=== PATIENT | female | born 1995 | race Caucasian/White ===

== ENCOUNTER 2023-07-10 18:45 | Emergency (ER) | payer OTHER, SELFPAY ==
[2023-07-10 18:53] VITALS: BP 119/66; PULSE 79; RESP 18; TEMP 36.8; O2SAT 99; BMI 28.4
[2023-07-10 19:35] LABS: Bilirubin Urine NEGATIVE (NEGATIVE); Blood Urine NEGATIVE (NEGATIVE); Clarity Urine CLEAR (CLEAR); Color Urine LT. YELLOW (YELLOW); Glucose Urine UA NEGATIVE (NEGATIVE); Ketones Urine TRACE mg/dL (NEGATIVE); Leukocyte Esterase Urine MODERATE (NEGATIVE); Nitrite Urine NEGATIVE (NEGATIVE); Protein Urine NEGATIVE (NEG/TRACE); Urine Microscopic Indicated YES
--- NOTE | 2023-07-10 19:43 | ED.FEMALEGU1 ---
HPI - Female Genitourinary General Chief complaint: Urogenital-Female Stated complaint: Vaginal pain Time Seen by Provider: 07/10/23 18:48 Source: patient Mode of arrival: walk-in Limitations: no limitations History of Present Illness HPI Narrative: 28-year-old female presents with a concern that she has a yeast infection or herpes outbreak. She has a known history of herpes. She complains of vaginal itching and white discharge. She complains of irritation to her labia. She states that there may be a risk of STD. She has tried Monistat. Denies fever, abd or back pain, dysuria, n/v/d Related Data Previous Rx's Medication Instructions Recorded metronidazole 500 mg tablet 500 mg PO Q12H 7 days #14 tabs 07/10/23 valacyclovir 500 mg tablet 500 mg PO Q12H 3 days #6 tabs 07/10/23 Allergies Allergy/AdvReac Type Severity Reaction Status Date / Time No Known Drug Allergies Allergy Verified 07/10/23 18:53 Review of Systems ROS Status of ROS 10 or more systems reviewed and unremarkable except as noted in history and below PFSH PFSH Social History Smoking status: Current every day smoker Exam Narrative Exam Narrative: General: A&Ox3, no distress, talking in full an complete sentences skin: warm, dry, intact head: normocephalic, atraumatic eyes: EOMI nose: nares patent neck: supple, trachea midline respiratory: non-labored extremities: FROM x 4, strength +5/5 abd: soft, NT vaginal: flat ulcerations to both labia with green discharge; nurse at bedside as witness neuro: A&Ox3 psych: appropriate mood and affect, cooperative Constitutional Vital Signs, click to edit/add: Last Vital Signs Temp 98.2 F 07/10/23 18:53 Pulse 79 07/10/23 18:53 Resp 18 07/10/23 18:53 BP 119/66 07/10/23 18:53 Pulse Ox 99 07/10/23 18:53 Course Vital Signs Vital signs: Vital Signs Temperature 98.2 F 07/10/23 18:53 Pulse Rate 79 07/10/23 18:53 Respiratory Rate 18 07/10/23 18:53 Blood Pressure 119/66 07/10/23 18:53 Pulse Oximetry 99 07/10/23 18:53 Temperature 98.2 F 07/10/23 18:53 Pulse Rate 79 07/10/23 18:53 Respiratory Rate 18 07/10/23 18:53 Blood Pressure 119/66 07/10/23 18:53 Pulse Oximetry 99 07/10/23 18:53 MDM - Female Genitourinary MDM Narrative Medical decision making narrative: UA negative. Gonorrhea and chlamydia pending. She is given her first dose of valacyclovir here and given a prescription as she does appear to have a general herpes outbreak. Wet prep negative for trichomoniasis and yeast and does show clue cells and will be treated for bacterial vaginosis with a dose of Flagyl here and given a prescription. I did discuss the black box warning on Flagyl with the patient and the risk of cancer and offered MetroGel applicators, but she chooses to be medicated with pills. She is to abstain from any sexual intercourse until her STD results are finalized and if she is positive she needs to inform all sexual partners so they can be tested and treated. She was educated to inform all sexual partners that she has herpes. Follow-up with the [facility]. afebrile, not tachypneic, not tachycardic, not hypoxic, non toxic appearing and ambulating at baseline and hemodynamically stable to be d/c. answered all questions. educated on SE of meds. pt in agreement with tx. educated when to return to ER. Lab Data Attestation: I reviewed the patient's lab results. Labs: Lab Results 07/10/23 Range/Units 19:15 Urine Color Lt. yellow (YELLOW) Urine Clarity Clear (CLEAR) Urine pH 7.0 (5.0-9.0) Ur Specific [place] 1.020 (1.005-1.025) Urine Protein Negative (NEG/TRACE) mg/dL Urine Glucose (UA) Negative (NEGATIVE) mg/dL Urine Ketones Trace A (NEGATIVE) mg/dL Urine Occult Blood Negative (NEGATIVE) Urine Nitrite Negative (NEGATIVE) Urine Bilirubin Negative (NEGATIVE) Urine Urobilinogen 1.0 (0.2-1.0) EU/dL Ur Leukocyte Esterase Moderate A (NEGATIVE) Urine RBC 2-5 A (0-2) #/HPF Urine WBC 5-10 A (NONE SEEN) #/HPF Ur Squamous Epith Cells Few A (NONE/RARE) #/LPF Urine Crystals None seen (None Seen) #/HPF Urine Bacteria Trace A (NONE SEEN) #/HPF Urine Casts None seen (NONE SEEN) #/LPF Urine Mucus Trace A (NONE SEEN) Ur Culture Indicated? Yes Urine HCG, Qual Negative (NEGATIVE) Discharge Plan Discharge Chief Complaint: Urogenital-Female Clinical Impression: Bacterial vaginosis Genital herpes Qualifiers: Herpes simplex infection site: vulvovaginitis Qualified Code(s): A60.04 - Herpesviral vulvovaginitis Patient Disposition: Home, Self-Care Time of Disposition Decision: 20:16 Condition: Good Mode of Transportation: Private Vehicle Prescriptions / Home Meds: New valacyclovir 500 mg tablet 500 mg PO Q12H 3 Days Qty: 6 0RF metronidazole 500 mg tablet 500 mg PO Q12H 7 Days Qty: 14 0RF Instructions: Bacterial Vaginosis (ED), Genital Herpes Simplex (ED), Sexually Transmitted Diseases (ED) Additional Instructions: No sexual activity until you find out your STD results If you do test positive, you need to inform all sexual partners that can be tested and treated You need to inform all partners prior to sexual intercourse as you have herpes and can spread this even without symptoms Stand Alone Forms: Portal Instructions Referrals: ABBY NAPIER [Primary Care Provider] - 1 week Discharge Date/Time: 07/10/23 20:38
[2023-07-10 19:52] LABS: Bacteria Urine TRACE #/HPF (NONE SEEN)
[2023-07-10 19:53] LABS: Cast Seen? NONE SEEN #/LPF (NONE SEEN); Crystals Seen? None Seen #/HPF (None Seen); Mucus Urine TRACE (NONE SEEN); Squamous Epithelial Cell Urine FEW #/LPF (NONE/RARE); Urine Culture Indicated YES
--- NOTE | 2023-07-10 20:01 | PC.NURSE ---
Patient c/o vaginal itching, pain, edema since yesterday. patient has known herpes viral infection and believes shes having an outbreak. unknown if she has any known blisters at this time but states it feels similar to previous outbreaks. patient also c/o thick, yeast like discharge. she took OTC monostat treatment yesterday with no relief. patient denies chance of but states there is a chance for other possible STD infections due to sexual activity. RN and internet application developer set patient up for vaginal exam. RICKI acuna at bedside. GC/Chlyamidia, wet prep taken to lab. Urine obtained and sent to lab. patient denies needs at this time. aware she is awaiting for results.
[2023-07-10 20:09] LABS: HCG Qualitative Urine* NEGATIVE (NEGATIVE)
[2023-07-10] MEDS: METRONIDAZOLE 250 MG TABLET 500 MG PO (20:38)
[2023-07-10] MEDS: VALACYCLOVIR HCL 500 MG TABLET PO (20:38)
[2023-07-12 22:07] LABS: Neisseria gonorrhoeae, NAA Negative (Negative)
== END 2023-07-10 20:38 | disposition home or self-care (01) ==
PROVIDERS: Physician Assistant; Student in an Organized Health Care Education/Training Program; Emergency Provider Internal Medicine; PCP Internal Medicine
DX: N76.0 Acute vaginitis (principal); F17.210 Nicotine dependence, cigarettes, uncomplicated
CPT/HCPCS: 81001; 84703; 87086; 87210; 87491; 87591; 99283

== ENCOUNTER 2023-10-31 09:57 | Outpatient (OUT) | payer OTHER, SELFPAY ==
--- NOTE | 2023-10-31 10:26 | XR_ITS ---
[address] [address] Patient Name: BRANNON SYKES MRN: [id number] date: 1995 Sex: F Assigned Patient Location: [facility] Current Patient Location: [facility] Accession/Order Number: [id number] Exam Date: 10/31/2023 10:38 Report Date: 10/31/2023 11:03 At the request of: JUANA ODOM Procedure: XR chest 2V EXAM: XR chest 2V HISTORY: Preop exam COMPARISON: None. TECHNIQUE: PA and lateral views of the chest. FINDINGS: The cardiomediastinal silhouette is normal. No focal consolidation is identified. There is no pneumothorax. No pleural effusion is noted. The osseous structures are intact. XR/XR chest 2V IMPRESSION: No acute cardiopulmonary process. Electronically authenticated by: MORIAH STEIN Date: 10/31/2023 11:03
== END 2023-10-31 09:58 | disposition home or self-care (01) ==
LOC: PST 09:59
PROVIDERS: PCP Internal Medicine; Visit Provider Obstetrics & Gynecology
DX: Z01.810 Encounter for preprocedural cardiovascular examination (principal); Z30.2 Encounter for sterilization
CPT/HCPCS: 71046

== ENCOUNTER 2023-11-09 06:14 | Day surgery (SDC) | payer OTHER, SELFPAY ==
[2023-10-31 10:33] VITALS: BP 102/68; PULSE 70; RESP 16; TEMP 36.3; O2SAT 98; BMI 18.7
[2023-11-09] VITALS (9 sets, daily range): BP systolic 104–132; BP diastolic 70–94; PULSE 64–112; RESP 10–19; TEMP 36.2–37; O2SAT 95–100; BMI 18.7
--- OUTSIDE RECORDS SUMMARY | 2023-11-09 06:17 | XMS_ITS | CCD ---
Author Name Unknown Address [address] [facility] [address] [place] [id number] Organization [facility] Care Team Providers Care Bag Sewer Name Role Phone PHYSICIAN, DEFAULT Unavailable Unavailable PHYSICIAN, DEFAULT Unavailable Unavailable MYNOR MEANS Unavailable Unavailable Unavailable Primary Care Provider Unavailabl e Unavailable Primary Care Provider UnavailDimitrios Finley Primary Care Provider DIMITRIOS OSWALD Referring Unavailable MARGRETDIMITRIOS Referring Unavailable MARGRET, DIMITRIOS J Referring Unavailable MARGRET, DIMITRIOS J Referring Unavailable MARGRET, DIMITRIOS J Referring Unavailable MARGRET, DIMITRIOS J Referring Unavailable MARGRET, DIMITRIOS J Admitting Unavailable MARGRET DIMITRIOS J Attending Unavailable MARGRET DIMITRIOS J Primary Care Unavailable ALEXIS ARNOLD Consulting Unavailable ALEXIS ARNOLD Attending Unavailable ALEXIS ARNOLD Admitting Unavailable JUANA ODOM Attending Unavailable Allergies Allergy Classification Reported Allergen(s) Allergy Type Date of Onset Reaction(s) Facility (1 source) Seasonal allergy; Translations: [Seasonal] Propensity to adverse reactions (disorder) 3 [facility] Medications Current Medications Medication Drug Class(es) Dates Sig (Normalized) Sig (Original) acetaminophen 500 mg oral tablet (2 sources) Start: 10-08-2020 1,000 mg, Oral, EVERY 6 HOURS PRN, Pain Mild (1-3), Pain Moderate (4-6), Fever, Fever >100.5 F (38 C), Starting 10/08/20 at 2248 Maximum dose of acetaminophen is 4000 mg from all sources in 24 hours. Inform physician if temp >100.4 (38.0) May alternate with Motrin for pain management Start: 09-03-2019 take 650 mg by mouth every four hours as needed for pain, then take 4000 mg by mouth every twenty-four hours as needed for pain 650 mg, Oral, EVERY 4 HOURS PRN, Pain Mild (1-3), Fever, Fever >100.5 F (38 C), Starting Sun09/03/19 at 0819 Maximum dose of acetaminophen is 4000 mg from all sources in 24 hours. benzocaine 200 mg/ml / menthol 5 mg/ml topical spray (2 sources) Standardized Chemical Allergen Start: 10-08-2020 Topical, PRN, Pain, Starting Sun10/08/20 at 2248 Apply to perineal area. Patient is capable and may self administer at bedside. Start: 09-02-2019 Topical, PRN, Pain, Starting Sun09/02/19 at 0902 Apply to perineal area. Patient is capable and may self administer at bedside. bisacodyl 10 mg rectal suppository (1 source) Stimulant Laxative Start: 10-08-2020 take 10 mg rectal route once daily as needed for constipation 10 mg, Rectal, DAILY PRN, Constipation, Starting Sun10/08/20 at 2248, calcium chloride 0.0014 meq/ml / potassium chloride 0.004 meq/ml / sodium chloride 0.103 meq/ml / sodium lactate 0.028 meq/ml injectable solution (3 sources) Start: 10-08-2020 End: 10-08-2020 Intravenous, at 125 mL/hr, CONTINUOUS, Starting Sun10/08/20 at 2315, Start: 09-01-2019 End: 09-03-2019 Intravenous, at 125 mL/hr, C ONTINUOUS, Starting Sun09/01/19 at 2015, Labor and Delivery docusate sodium 100 mg oral capsule (6 sources) Start: 10-08-2020 take 1 capsule by mo uth twice daily as needed for constipation docusate sodium (COLACE) 100 MG capsule Take 1 capsule by mouth 2 times daily as needed for Constipation 60 capsule 0 10/09/2020 Active Start: 09-01-2019 End: 10-02-2019 take 100 mg by mouth twice daily 100 mg, Oral, 2 TIMES DAILY, First dose on Sun09/03/19 at 0900 Do not crush or break. ferrous sulfate 325 mg delayed release oral tablet (2 sources) Start: 10-09-2020 take 1 tablet by mouth twice daily ferrous sulfate (FE TABS) 325 (65 Fe) MG EC tablet Take 1 tablet by mouth 2 times daily 90 tablet 1 10/09/2020 Active Start: 10-09-2020 End: 10-09-2020 take 1 tablet by mouth once daily at breakfast ferrous sulfate (IRON 325) 325 (65 Fe) MG tablet Take 1 tablet by mouth daily (with breakfast) 90 tablet 1 10/09/2020 10/09/2020 Discontinued (Stop Taking at Discharge) hydrocortisone 25 mg/ml topical cream (2 sources) Corticosteroid Start: 10-08-2020 Topical, EVERY 2 HOURS PRN, For perineal pain or discomfort, Starting 10/08/20 at 2248 Apply to perineal area. Patient is capable and may self administer at bedside. Start: 09-03-2019 Topical, EVERY 2 HOURS PRN, For perineal pain or discomfort, Starting 09/03/19 at 0819 Apply to perineal area. Patient is capable and may self administer at bedside. ibuprofen 800 mg oral tablet (13 sources) Nonsteroidal Anti-inflammatory Drug Start: 10-09-2020 take 1 tablet by mouth twice daily as needed for pain ibuprofen (ADVIL;MOTRIN) 800 MG tablet Take 1 tablet by mouth 2 times daily as needed for Pain 60 tablet 0 10/09/2020 Active Start: 09-02-2019 End: 10-09-2020 take 1 tablet by mouth every eight hours as needed for pain ibuprofen (ADVIL;MOTRIN) 800 MG tablet Take 1 tablet by mouth every 8 hours as needed for Pain 30 tablet 0 09/02/2019 Suspended lanolin 0.5 mg/mg topical ointment (2 sources) Start: 10-08-2020 Topical, PRN, Dry Skin, nipple discomfort, Starting 10/08/20 at 2248, Start: 09-03-2019 Topical, PRN, Dry Skin, nipple discomfort, Starting 09/03/19 at 0819, magnesium hydroxide 80 mg/ml oral suspension (1 source) Start: 10-08-2020 take 30 mL by mouth once daily as needed for constipation 30 mL, Oral, DAILY PRN, Constipation, Starting 10/08/20 at 2248, 2 ml ondansetron 2 mg/ml injection (2 sources) Serotonin-3 Receptor Antagonist Start: 10-08-2020 4 mg, Intravenous, EVERY 4 HOURS PRN, Nausea, Starting Sun10/08/20 at 2248, Start: 09-03-2019 take 8 mg by mouth e very eight hours as needed for nausea 8 mg, Oral, EVERY 8 HOURS PRN, Nausea, Starting Sun09/03/19 at 0819, oxytocin (PITOCIN) 30 units in 500 mL infusion (4 sources) Start: 10-08-2020 95 ching-units /min (95 mL/hr), Intravenous, at 95 mL/hr, PRN, Bleeding, Starting Sun10/08/20 at 2248, For 1 dose For Post Use Only. Give after delivery of placenta. Following Bolus from bag administration, reduce the rate to 95 mL/hr and administer remaining 20 units over 3.5 hours (210 minutes). Start: 10-08-2020 End: 10-08-2020 oxytocin (PITOCIN) 30 units in 500 mL infusion Start: 09-03-2019 1 ching-units/ min (1 mL/hr), Intravenous, at 1 mL/hr, CONTINUOUS, Starting Sun09/03/19 at 0845 For Post Use Only Give 166ml (10 units) bolus, followed by 50ml/hr (3 units/hr). May stop if bleeding returns to normal. Start: 09-01-2019 End: 09-03-2019 1 ching-units/min (1 mL/hr), Intravenous, at 1 mL/hr, CONTINUOUS, Starting Sun09/01/19 at 2015 Begin infusion at 1 ching-unit/min (1 ching-unit per min = 1 mL per hour) and increase by 1 ching-unit/min after 30 minutes. Then increase by 2 ching-units/min as needed, no faster than every 30 minutes, until labor is achieved. Labor is defined as contractions every 2-3 minutes with cervical changes or [place] units (MVU) greater than 200 in a 10-minute window. Maximum infusion rate: 20 ching-unit/min. Contact provider if maximum rate does not achieve desired response. Provider may order alternative titration goal or other clinically appropriate goal of titration rate (s). Smaller titration increments of 1 ching-units/min, not faster than every 30 minutes, may be used when approaching therapeutic goal. Labor and Delivery MV-Min-Fe Fum-FA-DH A ( 1 PO) (12 sources) MV-Min- Fe Fum-FA-DHA ( 1 PO) Take by mouth 0 Suspended MV-Min- Fe Fum-FA-DHA ( 1 PO) Take by mouth 0 Active simethicone 80 mg chewable tablet (1 source) Start: 10-08-2020 take 80 mg by mouth every six hours as needed 80 mg, Oral, EVERY 6 HOURS PRN, Cramping, Flatulence, Starting Sun10/08/20 at 2248, 3 ml sodium chloride 9 mg/ml injection (4 sources) Start: 10-08-2020 10 mL, Intrave nous, EVERY 12 HOURS SCHEDULED (2 times per day), First dose on Sun10/08/20 at 2315, Start: 10-08-2020 take 10 mL intravenous route o nce 10 mL, Intravenous, PRN, Line Care, Starting Sun10/08/20 at 2248 After every IV line use Start: 09-03-2019 10 mL, Intrave nous, EVERY 12 HOURS SCHEDULED (2 times per day), First dose on Sun09/03/19 at 0900, Start: 09-03-2019 take 10 mL intravenous route o nce 10 mL, Intravenous, PRN, Line Care, Starting Sun09/03/19 at 0819 After every IV line use witch benson 500 mg/ml medicated pad (2 sources) Start: 10-08-2020 Topical, PRN, Hemorrhoids, For perineal pain or discomfort, Starting Sun10/08/20 at 2248 Apply to perineal area. Patient is capable and may self administer at bedside. Start: 09-03-2019 Topical, PRN, Hemorrhoids, For perineal pain or discomfort, Starting Sun09/03/19 at 0819 Apply to perineal area. Patient is capable and may self administer at bedside. Completed/Discontinued Medications Medication Drug Class(es) Dates Sig (Normalized) Sig (Original) metroNIDAZOLE 500 mg oral tablet (2 sources) Nitroimidazole Antimicrobial Start: 09-30-2020 End: 10-09-2020 take 1 tablet by mouth twice daily metroNIDAZOLE (FLAGYL) 500 MG tablet Take 1 tablet by mouth 2 times daily for 7 days 14 tablet 0 10/04/2020 10/09/2020 Discontinued (Stop Taking at Discharge) miSOPROStol (CYTOTEC) pre-split tablet TABS 25 mcg (1 source) Start: 10-08-2020 End: 10-08-2020 miSOPROStol (CYTOTEC) pre-split tablet TABS 25 mcg 20 ml morphine sulfate 10 mg/ml injection (1 source) Opioid Agonist Start: 10-08-2020 End: 10-08-2020 morphine (PF) injection 10 mg oxytocin (PITOCIN) 30 units in 500 mL infusion Override Pull (1 source) Start: 10-08-2020 End: 10-08-2020 oxytocin (PITOCIN) 30 units in 500 mL infusion Override Pull 1 ml promethazine hydrochloride 25 mg/ml injection (1 source) Phenothiazine Start: 10-08-2020 End: 10-08-2020 promethazine (PHENERGAN) injection 25 mg 200 ml ropivacaine hydrochloride 2 mg/ml injection (1 source) Amide Local Anesthetic Start: 09-02-2019 End: 09-03-2019 ropivacaine 0.2% in sodium chloride 0.9% (OB) epidural 100 mL Problems Active Problems Problem Classification Problem Date Documented Da te Episodic/Chronic Menstrual disorders (3 sources) Missed period; Translations: [Missed menses] Chronic Other complications of (1 source) Urinary tract infection in ; Translations: [Urinary tract infection in mother during third trimester of ] Episodic Other complications of (13 sources) Late entry into care; Translations: [Late care] Onset: 04-30-2019 05-30-2019 Episodic Other complications of (20 sources) High risk ; Translations: [High risk multigravida in third trimester] Onset: 04-30-2019 Resolved: 07-06-2020 08-25-2019 Episodic Other inflammatory condition of skin (1 source) Pruritus of vagina; Translations: [Vaginal itching] Episodic Other and delivery including normal (16 sources) Normal ; Translations: [Vaginal delivery] Onset: 04-30-2019 05-30-2019 Episodic Residual codes; unclassified (1 source) Requires diphtheria, tetanus and pertussis vaccination; Translations: [Need for diphtheria-tetanus- pertussis (Tdap) vaccine] Onset: 08-25-2019 08-25-2019 Episodic Residual codes; unclassified (1 source) Gestation period, 25 weeks; Translations: [25 weeks gestation of ] Episodic Residual codes; unclassified (1 source) Gestation period, 35 weeks; Translations: [35 weeks gestation of ] Episodic Residual codes; unclassified (1 source) Gestation period, 34 weeks; Translations: [34 weeks gestation of ] Substance-related disorders (3 sources) Smoker; Translations: [Smoking] Onset: 10-06-2020 10-08-2020 Chronic Substance-related disorders (7 sources) Marijuana user; Translations: [Marijuana user] Onset: 04-30-2019 07-08-2019 Unclassified (9 sources) Tetanus diphtheria and acellular pertussis vaccination declined; Translations: [Tetanus, diphtheria, and acellular pertussis (Tdap) vaccination declined] Onset: 08-25-2019 Resolved: 05-17-2020 08-26-2019 Unclassified (6 sources) History of clinical finding in subject; Translations: [History of marijuana use] Onset: 04-30-2019 07-06-2020 Past or Other Problems Problem Classification Problem Date Documented Da te Episodic/Chronic Diabetes or abnormal glucose tolerance complicating ; childbirth; or the puerperium (12 sources) Personal history of gestational diabetes; Translations: [History of gestational diabetes] Onset: 05-29-2019 Resolved: 05-17-2020 05-29-2019 Episodic Genitourinary symptoms and ill-defined conditions (12 sources) Bacteriuria; Translations: [GBS bacteriuria] Onset: 05-02-2019 Resolved: 05-17-2020 05-29-2019 Episodic Other female genital disorders (1 source) Vaginal discharge; Translations: [Vaginal discharge] Episodic Residual codes; unclassified (10 sources) Needs influenza immunization; Translations: [Flu vaccine need] Onset: 08-25-2019 08-25-2019 Episodic Results Test Name Value Interpretation Reference Range Facil ity CBC auto differentialon - Basophils (Bld) [#/Vol] 10*3/uL [facility] [place] Basophils/100 WBC (Bld) 0 % 0 - 2 % [place], [place] Differential Type NOT REPORTED [place] Eosinophils (Bld) [#/Vol] 0.04 10*3/uL [place] Eosinophils/100 WBC (Bld) 1 % 1 - 4 % [place] Erythrocyte distribution width (RBC) [Ratio] 13.2 % 11.8 - 14.4 % [place] Hematocrit (Bld) [Volume fraction] 31.4 % Low 36.3 - 47.1 % [place] Hemoglobin (Bld) [Mass/Vol] 9.8 g/dL Low 11.9 - 15.1 g/dL [place] Immature granulocytes (Bld) [#/Vol] 0.05 10*3/uL [place] Immature granulocytes (Bld) [#/Vol] 1 % High 0 [place] Interpretation and review of laboratory results Abnormal [place] Lymphocytes (Bld) [#/Vol] 2.29 10*3/uL [place] Lymphocytes/100 WBC (Bld) 28 % 24 - 43 % [place] MCH (RBC) [Entitic mass] 25.7 pg 25.2 - 33.5 pg [place] MCHC (RBC) [Mass/Vol] 31.2 g/dL 28.4 - 34.8 g/dL [place] MCV (RBC) [Entitic vol] 82.2 fL Low 82.6 - 102.9 fL [place] Monocytes (Bld) [#/Vol] 0.38 10*3/uL [place] Monocytes/100 WBC (Bld) 5 % 3 - 12 % [place] Platelet mean volume (Bld) [Entitic vol] 10.7 fL 8.1 - 13.5 fL [place] Platelets (Bld) [#/Vol] 250 10*3/uL [place] Platelets (Bld) [#/Vol] NOT REPORTED [place] RBC (Bld) [#/Vol] 3.82 10*6/uL Low 3.95 - 5.1 1 m/uL [place] RBC morphology finding Nom (Bld) MICROCYTOSIS PRESENT [place] Segmented neutrophils/100 WBC (Bld) 65 % 36 - 65 % [place] Segs Absolute 5.33 [place] WBC (Bld) [#/Vol] 8.1 10*3/uL [place] WBC (Bld) [#/Vol] 0.0 10*3/uL 0.0 per 100 WBC M [place] WBC Morphology NOT REPORTED [place] CBC with Diffon 10-08-2020 Abs. Basophil <0.03 Normal 0.00-0.20 [facility] Comment on above: Performed By: #### U LELO Winter[place] #### [place] [address] [employer]: Gavin Hill MD Abs.Imm.Granulocyte 0.05 k/uL Normal 0.00-0.30 [facility] Comment on above: Performed By: #### U Moy TORO #### [place] [address] [employer]: Gavin Hill MD Abs.Neutrophil (Seg) 5.33 k/uL Normal 1.50-8.10 [facility] Comment on above: Performed By: #### U Moy TORO #### [address] [address] [employer]: Gavin Hill MD Basophils/100 WBC (Bld) 0 % Normal 0-2 [facility] Comment on above: Performed By: #### U A [place]ORO #### [place] [address] [employer]: Gavin Hill MD Eosinophils (Bld) [#/Vol] 0.04 10*3/uL Normal 0.00-0.44 [facility] Comment on above: Performed By: #### U Moy TORO #### [address] [address] [employer]: Gavin Hill MD Eosinophils/100 WBC (Bld) 1 % Normal 1-4 [facility] Comment on above: Performed By: #### U A, TORO #### [address] [address] [employer]: Gavin Hill MD Erythrocyte distribution width (RBC) [Ratio] 13.2 % Normal 11.8-14.4 [facility] Comment on above: Performed By: #### U A, TORO #### [address] [address] [employer]: Gavin Hill MD Hematocrit (Bld) [Volume fraction] 31.4 % Low 36.3-47.1 [facility] Comment on above: Performed By: #### U A, TORO #### [address] [address] [employer]: Gavin Hill MD Hemoglobin (Bld) [Mass/Vol] 9.8 g/dL Low 11.9-15.1 [facility] Comment on above: Performed By: #### U A, TORO #### [address] [address] [employer]: Gavin Hill MD Immature granulocytes (Bld) [#/Vol] 1 % High 0 [facility] Comment on above: Performed By: #### U A, TORO #### [address] [address] [employer]: Gavin Hill MD Lymphocytes (Bld) [#/Vol] 2.29 10*3/uL Normal 1.10-3.70 [facility] Comment on above: Performed By: #### U A, TORO #### [address] [address] [employer]: Gavin Hill MD Lymphocytes/100 WBC (Bld) 28 % Normal 24-43 [facility] Comment on above: Performed By: #### U A, TORO #### [address] [address] [employer]: Gavin Hill MD MCH (RBC) [Entitic mass] 25.7 pg Normal 25.2-33.5 [facility] Comment on above: Performed By: #### U A, TORO #### [address] [address] [employer]: Gavin Hill MD MCHC (RBC) [Mass/Vol] 31.2 g/dL Normal 28.4-34.8 [facility] Comment on above: Performed By: #### U A, TORO #### [address] [address] [employer]: Gavin Hill MD MCV (RBC) [Entitic vol] 82.2 fL Low 82.6-102.9 [facility] Comment on above: Performed By: #### U A, TORO #### [address] [address] [employer]: Gavin Hill MD Monocytes (Bld) [#/Vol] 0.38 10*3/uL Normal 0.10-1.20 [facility] Comment on above: Performed By: #### U A, TORO #### [address] [address] [employer]: Gavin Hill MD Monocytes/100 WBC (Bld) 5 % Normal 3-12 [facility] Comment on above: Performed By: #### U A, TORO #### [address] [address] [employer]: Gavin Hill MD Neutrophil (Seg) 65 % Normal 36-65 [facility] Comment on above: Performed By: #### U A, TORO #### [address] [address] [employer]: Gavin Hill MD NRBC Automated 0.0 per 100 WBC Normal 0.0 [facility] Comment on above: Performed By: #### U A, TORO #### [address] [address] [employer]: Gavin Hill MD Platelet mean volume (Bld) [Entitic vol] 10.7 fL Normal 8.1-13.5 [facility] Comment on above: Performed By: #### U A, TORO #### [address] [address] [employer]: Gavin Hill MD Platelets (Bld) [#/Vol] 250 10*3/uL Normal 138-453 [facility] Comment on above: Performed By: #### U A, TORO #### [address] [address] [employer]: Gavin Hill MD RBC (Bld) [#/Vol] 3.82 10*6/uL Low 3.95-5.11 [facility] Comment on above: Performed By: #### U A, TORO #### [address] [address] [employer]: Gavin Hill MD RBC morphology finding Nom (Bld) MICROCYTOSIS PRESENT Normal [facility] Comment on above: Performed By: #### U A, TORO #### [address] [address] [employer]: Gavin Hill MD WBC (Bld) [#/Vol] 8.1 10*3/uL Normal 3.5-11.3 [facility] Comment on above: Performed By: #### U A, TORO #### [facility] [place] [address] [employer]: Gavin Hill MD Auto Diff Performed NOT REPORTED Normal [facility] Comment on above: Performed By: #### U A, TORO #### [facility] [address] [place] [address] [employer]: Gavin Hill MD Platelets (Bld) [#/Vol] NOT REPORTED Normal [facility] Comment on above: Performed By: #### U A, TORO #### [facility] [address] [place] [address] [employer]: Gavin Hill MD WBC Morphology NOT REPORTED Normal [facility] Comment on above: Performed By: #### U A, TORO #### [facility] [address] [place] [address] [employer]: Gavin Hill MD COVID-19on 10-08-2020 SARS-CoV-2, Rapid Not Detected Not Detected [place], [place] Comment on above: Rapid NAAT: The specimen is NEGATIVE for SARS-CoV-2, the novel coronavirus associated with COVID-19. The ID NOW COVID-19 assay is designed to detect the virus that causes COVID-19 in patients with signs and symptoms of infection who are suspected of COVID-19. An individual without symptoms of COVID-19 and who is not shedding SARS-CoV-2 virus would expect to have a negative (not detected) result in this assay. Negative results should be treated as presumptive and, if inconsistent with clinical signs and symptoms or necessary for patient management, should be tested with an alternative molecular assay. Negative results do not preclude SARS-CoV-2 infection and should not be used as the sole basis for patient management decisions. Fact sheet for Healthcare Providers: https://www.fda.gov/media/810707/download Fact sheet for Patients: https://www.fda.gov/media/614140/download Methodology: Isothermal Nucleic Acid Amplification Source .NASOPHARYNGEAL SWAB [place], [place] DRUG SCREEN MULTI URINEon Amphetamine Screen, Ur Negative NEGATIVE [place] Comment on above: (Positive cutoff 1000 ng/mL) Barbiturate Screen, Ur Negative NEGATIVE [place] Comment on above: (Positive cutoff 200 ng/mL) Benzodiazepine Screen, Urine Negative NEGATIVE [place] Comment on above: (Positive cutoff 200 ng/mL) Buprenorphine Urine NOT REPORTED NEGATIVE [place] Cannabinoid Scrn, Ur Negative NEGATIVE [place], [place] Comment on above: (Positive cutoff 50 ng/mL) Cocaine Metabolite, Urine Negative NEGATIVE [place] Comment on above: (Positive cutoff 300 ng/mL) MDMA, Urine NOT REPORTED NEGATIVE [place] Methadone Screen, Urine Negative NEGATIVE [place] Comment on above: (Positive cutoff 300 ng/mL) Methamphetamine, Urine NOT REPORTED NEGATIVE [place] Opiates, Urine Negative NEGATIVE [place] Comment on above: (Positive cutoff 300 ng/mL) Oxycodone Screen, Ur Negative NEGATIVE [place] Comment on above: (Positive cutoff 100 ng/mL) Phencyclidine, Urine Negative NEGATIVE [place] Comment on above: (Positive cutoff 25 ng/mL) Propoxyphene, Urine NOT REPORTED NEGATIVE [place] Test Information Assay provides medic al screening only. The absence of expected drug(s) and/or metabolite(s) may indicate diluted or adulterated urine, limitations of testing or timing of collection. [place] Comment on above: Testing for legal pu rposes should be confirmed by another method. To request confirmation of test result, please call the lab within 7 days of sample submission. Tricyclic Antidepressants, Urine NOT REPORTED NEGATIVE [place] Drug Scr, Abuse, Uron 2019 Amphetamine(s),Ur Negative Normal NEG [facility] Comment on above: Result Comment: (Positive cutoff 1000 ng/mL) Performed By: #### U A, TORO #### [facility] [employer] [address] [place] [id number] [employer]: Gavin Hill MD Barbiturate(s),Ur Negative Normal NEG [facility] Comment on above: Result Comment: (Positive cutoff 200 ng/mL) Performed By: #### U A, TORO #### [facility] [employer] [address] [place] [address] [employer]: Gavin Hill MD Base excess Calc (Bld) [Moles/Vol] Negative Normal NEG [facility] Comment on above: Result Comment: (Positive cutoff 300 ng/mL) Performed By: #### U A, TORO #### [facility] [address] [place] [address] [employer]: Gavin Hill MD Benzodiazepine(s) Negative Normal NEG [facility] Comment on above: Result Comment: (Positive cutoff 200 ng/mL) Performed By: #### U A, TORO #### [place] [address] [employer]: Gavin Hill MD Cannabinoid(s),Ur Negative Normal NEG [facility] Comment on above: Result Comment: (Positive cutoff 50 ng/mL) Performed By: #### U A, TORO #### [address] [address] [employer]: Gavin Hill MD Interpretive Info Assay provides medic al screening only. The absence of expected drug(s) and/or Normal [facility] Comment on above: Result Comment: meta bolite(s) may indicate diluted or adulterated urine, limitations of testing or timing of collection. Testing for legal purposes should be confirmed by another method. To request confirmation of test result, please call the lab within 7 days of sample submission. Performed By: #### U A, TORO #### [facility] [address] [place], [place] [id number] [employer]: Gavin Hill MD Methadone Ql (U) Negative Normal NEG [facility] Comment on above: Result Comment: (Positive cutoff 300 ng/mL) Performed By: #### U A, TORO #### [employer] [address] [place], [place] [id number] Head Of Sales Promotion: Gavin Hill MD Opiate(s), Ur Negative Normal NEG [facility] Comment on above: Result Comment: (Positive cutoff 300 ng/mL) Performed By: #### U A, TORO #### [facility] [employer] [address] [place] [phone] Head Of Sales Promotion: Gavin Hill MD Oxycodone, Urine Negative Normal NEG [facility] Comment on above: Result Comment: (Positive cutoff 100 ng/mL) Performed By: #### U A, TORO #### [facility] [employer] [address] [place] [phone] Head Of Sales Promotion: Gavin Hill MD Phencyclidine, Ur Negative Normal NEG [facility] Comment on above: Result Comment: (Positive cutoff 25 ng/mL) Performed By: #### U A, TORO #### [facility] [address] [place] [phone] Head Of Sales Promotion: Gavin Hill MD Buprenorphrine, Ur NOT REPORTED Normal NEG [facility] Comment on above: Performed By: #### U A, TORO #### [facility] [address] [place] [phone] Head Of Sales Promotion: Gavin Hill MD MDMA, Urine NOT REPORTED Normal NEG [facility] Comment on above: Performed By: #### U A, TORO #### [facility] [address] [place] [phone] Head Of Sales Promotion: Gavin Hill MD Methamphetamine, Ur NOT REPORTED Normal NEG [facility] Comment on above: Performed By: #### U A, TORO #### [facility] [employer] [address] [place] [address] 33976 Head Of Sales Promotion: Gavin Hill MD Propoxyphene,Urine NOT REPORTED Normal NEG [facility] Comment on above: Performed By: #### U A, TORO #### [facility] [address] [place] [phone] Head Of Sales Promotion: Gavin Hill MD Tricyclic antidepressants Screen Ql (U) NOT REPORTED Normal NEG [facility] Comment on above: Performed By: #### U A, TORO #### [facility] [address] [place] [address] [phone] Head Of Sales Promotion: Gavin Hill MD Otheron 10-08-2020 SARS-CoV-2 [facility] [id number] 10-08-2020 SARS-CoV-2 Normal [facility] Comment on above: Performed By: #### U A, TORO #### [address] [phone] Head Of Sales Promotion: Gavin Hill MD SARS-CoV-2,Rapid Not Detected Normal NOTDET [facility] Comment on above: Result Comment: Rapid NAAT: The specimen is NEGATIVE for SARS-CoV-2, the novel coronavirus associated with COVID-19. The ID NOW COVID-19 assay is designed to detect the virus that causes COVID-19 in patients with signs and symptoms of infection who are suspected of COVID-19. An individual without symptoms of COVID-19 and who is not shedding SARS-CoV-2 virus would expect to have a negative (not detected) result in this assay. Negative results should be treated as presumptive and, if inconsistent with clinical signs and symptoms or necessary for patient management, should be tested with an alternative molecular assay. Negative results do not preclude SARS-CoV-2 infection and should not be used as the sole basis for patient management decisions. Fact sheet for Healthcare Providers: https://www.fda.gov/media/028499/download Fact sheet for Patients: https://www.fda.gov/media/388885/download Methodology: Isothermal Nucleic Acid Amplification Performed By: #### U A, TORO #### [address] [phone] Head Of Sales Promotion: Gavin Hill MD SARS-CoV-2 Normal [facility] Comment on above: Performed By: #### U A, TORO #### [facility] [address], [place] [phone] Head Of Sales Promotion: Gavin Hill MD SARS-CoV-2 Source .NASOPHARYNGEAL SWAB Normal [facility] Comment on above: Performed By: #### U A, TORO #### [facility] [employer] [address], [place] [phone] Head Of Sales Promotion: Gavin Hill MD Surgical Pathologyon 020 Surgical Pathology (NOTE) -- Diagnosis -- PLACENTA:- NO DIAGNOSTIC GROSS OR HISTOLOGIC ABNORMALITY IS IDENTIFIED. Parvez Cerda, Electronically Signed Out [facility]10/12/2020 Clinical Information Pre-op Diagnosis: 25 Y/O, , IUP @ 39W, 1D, EIOL, ANEMIA (9.8, LATE PNC, SHORT INTERNAL , THC USE, TOBACCO USE, BMI 23.7 Operative Findings: 10/08/2020, , M, APG 8/9, WT 7 LBS, 4 OZ Operation Performed: PLACENTA, CORD, AND MEMBRANES Source of Specimen 1: PLACENTA, CORD AND MEMBRANES Gross Description BRANNON MOORE, UNDESIGNATED Placenta with attached membranes and umbilical cord. UMBILICAL CORD Length: 23 cm. Diameter: 1.4 cm. True knots: No Number of vessels: 3 Spiraling: Normal Insertion into surface: Central MEMBRANES Color: Hernandez-frazier, opacified with a partial circummarginate insertion over 50% of the 50% of the disc. The remaining insertion is marginal. Meconium staining: No SURFACE Color: Purple-hernandez, with a normal array of surface vessels Subchorionic fibrin: Marginal and involves approximately 10% of the disc MATERNAL SURFACE Cotyledons: -All present and intact: Yes -Focal lesions: No Placental size: 16 x 15 x 3.5 cm. Shape: Ovoid Weight: 403 grams Number of cassettes: 3cs dw Microscopic Description Umbilical cord: Unremarkable Membranes: Unremarkable Meconium staining: No Infarcts: No Intervillous thrombi: No Subchorionic fibrin: Not significantly increased Villous maturation: Appropriate Nucleated erythrocytes in villous capillaries: Not increased Other: Few microcalcifications SURGICAL PATHOLOGY CONSULTATION Patient Name: BRANNON MOORE [facility] Rec: [id number] Path Number: [id number] [facility] ANATOMIC PATHOLOGY [address] [place] [phone] Normal [facility] Comment on above: Performed By: #### U A, TORO #### [facility] [address] [place] [address] [phone] Head Of Sales Promotion: Gavin Hill MD T. pallidum Abon 10-08-2020 T. pallidum, IgG NONREACTIVE NONREACTIVE [place], [place] Comment on above: T. pallidum antibodies are not detected. There is no serological evidence of infection with T. pallidum (early primary syphilis cannot be excluded). Retest in 2-4 weeks if syphilis is clinically suspect. T.pallidum Ab Screenon 10-08 T.pallidum Ab Screen NONREACTIVE Normal [facility] Comment on above: Result Comment: T. pallidum antibodies are not detected. There is no serological evidence of infection with T. pallidum (early primary syphilis cannot be excluded). Retest in 2-4 weeks if syphilis is clinically suspect. Performed By: #### U A, TORO #### [facility] [address] [place] [address] [phone] Head Of Sales Promotion: Gavin Hill MD TYPE AND SCREENon 10-08-2020 ABO/Rh Positive [place], [place] Arm Band Number [place] [id number] [place], [place] Expiration Date 10/11/2020,2355 [place], [place] Type + Screenon 10-08-2020 Type + Screen Sample Expiration 10/11/2020,2354 Arm Band Number BE [id number] ABO/Rh(D) A POSITIVE Antibody Screen NEGATIVE Normal [facility] Comment on above: Performed By: #### U A, TORO #### [facility] [address] [place] [address] [phone] Head Of Sales Promotion: Gavin Hill MD Vaginitis DNA Probeon 2019 Vaginitis DNA Probe Specimen Description .VAGINA Special Requests NOT REPORTED Direct Exam POSITIVE for Ern sp. POSITIVE for Gardnerella vaginalis. NEGATIVE for Trichomonas vaginalis Method of testing is a DNA probe intended for detection and identification of Ren species, Gardnerella vaginalis, and Trichomonas vaginalis nucleic acid in vaginal fluid specimens from patients with symptoms of vaginitis/vaginosis. Report Status FINAL 09/30/2020 Normal [facility] Comment on above: Performed By: #### U Moy, TORO #### [facility] [employer] [address] [place] [address] Head Of Sales Promotion: Gavin Hill MD CBC Auto Differentialon 08-19 Basophils (Bld) [#/Vol] 10*3/uL [place] Basophils/100 WBC (Bld) 0 % 0 - 2 % [place] Differential Type NOT REPORTED [place] Eosinophils (Bld) [#/Vol] 0.04 10*3/uL [place] Eosinophils/100 WBC (Bld) 1 % 1 - 4 % [place] Erythrocyte distribution width (RBC) [Ratio] 12.3 % 11.8 - 14.4 % [place] Hematocrit (Bld) [Volume fraction] 34.1 % Low 36.3 - 47.1 % [place] Hemoglobin (Bld) [Mass/Vol] 10.7 g/dL Low 11.9 - 15.1 g/dL [place] Immature granulocytes (Bld) [#/Vol] 0.07 10*3/uL [place] Immature granulocytes (Bld) [#/Vol] 1 % High 0 [place] Interpretation and review of laboratory results Abnormal [place] Lymphocytes (Bld) [#/Vol] 2.22 10*3/uL [place] Lymphocytes/100 WBC (Bld) 26 % 24 - 43 % [place] MCH (RBC) [Entitic mass] 27.4 pg 25.2 - 33.5 pg [place] MCHC (RBC) [Mass/Vol] 31.4 g/dL 28.4 - 34.8 g/dL [place] MCV (RBC) [Entitic vol] 87.2 fL 82.6 - 102.9 fL [place] Monocytes (Bld) [#/Vol] 0.41 10*3/uL [place] Monocytes/100 WBC (Bld) 5 % 3 - 12 % [place] Platelet mean volume (Bld) [Entitic vol] 10.7 fL 8.1 - 13.5 fL [place] Platelets (Bld) [#/Vol] 267 10*3/uL [place] Platelets (Bld) [#/Vol] NOT REPORTED [place] RBC (Bld) [#/Vol] 3.91 10*6/uL Low 3.95 - 5.1 1 m/uL [place] RBC morphology finding Nom (Bld) NOT REPORTED [place] Segmented neutrophils/100 WBC (Bld) 67 % High 36 - 65 % [place] Segs Absolute 5.68 [place] WBC (Bld) [#/Vol] 0.0 10*3/uL 0.0 per 100 WBC M [place] WBC (Bld) [#/Vol] 8.4 10*3/uL [place] WBC Morphology NOT REPORTED [place] CBC with Diffon 09-01-2020 Abs. Basophil <0.03 Normal 0.00-0.20 [facility] Comment on above: Performed By: #### C DP, GLUSC #### [facility] [employer] [address] [place] [address] [phone] Head Of Sales Promotion: Gavin Hill MD Abs.Imm.Granulocyte 0.07 k/uL Normal 0.00-0.30 [facility] Comment on above: Performed By: #### C DP, GLUSC #### [facility] [employer] [address], [place] [phone] Head Of Sales Promotion: Gavin Hill MD Abs.Neutrophil (Seg) 5.68 k/uL Normal 1.50-8.10 [facility] Comment on above: Performed By: #### C DP, GLUSC #### [place] [address] Head Of Sales Promotion: Gavin Hill MD Basophils/100 WBC (Bld) 0 % Normal 0-2 [facility] Comment on above: Performed By: #### C DP, GLUSC #### [place] [address] Head Of Sales Promotion: Gavin Hill MD Eosinophils (Bld) [#/Vol] 0.04 10*3/uL Normal 0.00-0.44 [facility] Comment on above: Performed By: #### C DP, GLUSC #### [place] [address] Head Of Sales Promotion: Gavin Hill MD Eosinophils/100 WBC (Bld) 1 % Normal 1-4 [facility] Comment on above: Performed By: #### C DP, GLUSC #### [place] [address] Head Of Sales Promotion: Gavin Hill MD Erythrocyte distribution width (RBC) [Ratio] 12.3 % Normal 11.8-14.4 [facility] Comment on above: Performed By: #### C DP, GLUSC #### [place] [address] Head Of Sales Promotion: Gavin Hill MD Hematocrit (Bld) [Volume fraction] 34.1 % Low 36.3-47.1 [facility] Comment on above: Performed By: #### C DP, GLUSC #### [place] [address] Head Of Sales Promotion: Gavin Hill MD Hemoglobin (Bld) [Mass/Vol] 10.7 g/dL Low 11.9-15.1 [facility] Comment on above: Performed By: #### C DP, GLUSC #### [address] [address] Head Of Sales Promotion: Gavin Hill MD Immature granulocytes (Bld) [#/Vol] 1 % High 0 [facility] Comment on above: Performed By: #### C DP, GLUSC #### [address] [address] Head Of Sales Promotion: Gavin Hill MD Lymphocytes (Bld) [#/Vol] 2.22 10*3/uL Normal 1.10-3.70 [facility] Comment on above: Performed By: #### C DP, GLUSC #### [address] [address] Head Of Sales Promotion: Gavin Hill MD Lymphocytes/100 WBC (Bld) 26 % Normal 24-43 [facility] Comment on above: Performed By: #### C DP, GLUSC #### [address] [address] Head Of Sales Promotion: Gavin Hill MD MCH (RBC) [Entitic mass] 27.4 pg Normal 25.2-33.5 [facility] Comment on above: Performed By: #### C DP, GLUSC #### [address] [address] Head Of Sales Promotion: Gavin Hill MD MCHC (RBC) [Mass/Vol] 31.4 g/dL Normal 28.4-34.8 [facility] Comment on above: Performed By: #### C DP, GLUSC #### [address] [address] Head Of Sales Promotion: Gavin Hill MD MCV (RBC) [Entitic vol] 87.2 fL Normal 82.6-102.9 [facility] Comment on above: Performed By: #### C DP, GLUSC #### [address] [address] Head Of Sales Promotion: Gavin Hill MD Monocytes (Bld) [#/Vol] 0.41 10*3/uL Normal 0.10-1.20 [facility] Comment on above: Performed By: #### C DP, GLUSC #### [address] [address] Head Of Sales Promotion: Gavin Hill MD Monocytes/100 WBC (Bld) 5 % Normal 3-12 [facility] Comment on above: Performed By: #### C DP, GLUSC #### [address] [address] Head Of Sales Promotion: Gavin Hill MD Neutrophil (Seg) 67 % High 36-65 [facility] Comment on above: Performed By: #### C DP, GLUSC #### [address] [address] Head Of Sales Promotion: Gavin Hill MD NRBC Automated 0.0 per 100 WBC Normal 0.0 [facility] Comment on above: Performed By: #### C DP, GLUSC #### [address] [address] Head Of Sales Promotion: Gavin Hill MD Platelet mean volume (Bld) [Entitic vol] 10.7 fL Normal 8.1-13.5 [facility] Comment on above: Performed By: #### C DP, GLUSC #### [address] [address] Head Of Sales Promotion: Gavin Hill MD Platelets (Bld) [#/Vol] 267 10*3/uL Normal 138-453 [facility] Comment on above: Performed By: #### C DP, GLUSC #### [address] [address] Head Of Sales Promotion: Gavin Hill MD RBC (Bld) [#/Vol] 3.91 10*6/uL Low 3.95-5.11 [facility] Comment on above: Performed By: #### C DP, GLUSC #### [address] [address] Head Of Sales Promotion: Gavin Hill MD WBC (Bld) [#/Vol] 8.4 10*3/uL Normal 3.5-11.3 [facility] Comment on above: Performed By: #### C DP, GLUSC #### [address] [address] Head Of Sales Promotion: Gavin Hill MD Auto Diff Performed NOT REPORTED Normal [facility] Comment on above: Performed By: #### C DP, GLUSC #### [address] [address] Head Of Sales Promotion: Gavin Hill MD Platelets (Bld) [#/Vol] NOT REPORTED Normal [facility] Comment on above: Performed By: #### C DP, GLUSC #### [address] [address] Head Of Sales Promotion: Gavin Hill MD RBC morphology finding Nom (Bld) NOT REPORTED Normal [facility] Comment on above: Performed By: #### C DP, GLUSC #### [address] [address] Head Of Sales Promotion: Gavin Hill MD WBC Morphology NOT REPORTED Normal [facility] Comment on above: Performed By: #### C DP, GLUSC #### [address] [address] Head Of Sales Promotion: Gavin Hill MD Glucose Eber Scr 50gon 2019 Glucose [Mass/Vol] 122 mg/dL Normal 70-135 [facility] Comment on above: Performed By: #### U A, TORO #### [address] [place] [address] Head Of Sales Promotion: Gavin Hill MD Glu Administered via Glucola Normal [facility] Comment on above: Performed By: #### U A, TORO #### [facility] [address] [place] [address] Head Of Sales Promotion: Gavin Hill MD Glucose tolerance, 1 houron 09-01-2020 GLU ADMN Glucola [place], [place] Glucose tolerance screen 50g 122 mg/dL 70 - 135 mg/dL [place] HIV Ag/Abon 06-14-2020 HIV Ag/Ab NONREACTIVE Normal NR [facility] Comment on above: Result Comment: No l aboratory evidence of HIV infection. If acute HIV infection is suspected, consider testing for HIV-1 RNA. Performed By: #### H IVCMB #### [facility] [employer] [address] [place] [phone] Head Of Sales Promotion: Gavin Hill MD HIV Screenon 06-14-2020 HIV Ag/Ab NONREACTIVE NONREACTIVE [place] Comment on above: No laboratory eviden ce of HIV infection. If acute HIV infection is suspected, consider testing for HIV-1 RNA. PROFILE Ion 020 Basophils (Bld) [#/Vol] 10*3/uL [place] Basophils/100 WBC (Bld) 0 % 0 - 2 % [place] Differential Type NOT REPORTED [place] Eosinophils (Bld) [#/Vol] 0.08 10*3/uL [place] Eosinophils/100 WBC (Bld) 1 % 1 - 4 % [place] Erythrocyte distribution width (RBC) [Ratio] 13.0 % 11.8 - 14.4 % [place] Hematocrit (Bld) [Volume fraction] 33.8 % Low 36.3 - 47.1 % [place] Hemoglobin (Bld) [Mass/Vol] 10.9 g/dL Low 11.9 - 15.1 g/dL [place] Hepatitis B Surface Ag NONREACTIVE NONREACTIVE [place] Immature granulocytes (Bld) [#/Vol] 0.04 10*3/uL [place] Immature granulocytes (Bld) [#/Vol] 1 % High 0 [place] Interpretation and review of laboratory results Abnormal [place] Lymphocytes (Bld) [#/Vol] 2.33 10*3/uL [place] Lymphocytes/100 WBC (Bld) 28 % 24 - 43 % [place] MCH (RBC) [Entitic mass] 29.5 pg 25.2 - 33.5 pg [place] MCHC (RBC) [Mass/Vol] 32.2 g/dL 28.4 - 34.8 g/dL [place] MCV (RBC) [Entitic vol] 91.6 fL 82.6 - 102.9 fL [place] Monocytes (Bld) [#/Vol] 0.50 10*3/uL [place] Monocytes/100 WBC (Bld) 6 % 3 - 12 % [place] Platelet mean volume (Bld) [Entitic vol] 11.4 fL 8.1 - 13.5 fL [place] Platelets (Bld) [#/Vol] NOT REPORTED [place] Platelets (Bld) [#/Vol] 227 10*3/uL [place] RBC (Bld) [#/Vol] 3.69 10*6/uL Low 3.95 - 5.1 1 m/uL [place] RBC morphology finding Nom (Bld) NOT REPORTED [place] Rubella virus IgG Ql (S) 80.4 IU/mL [place] Comment on above: REFERENCE RANGE: <5.0 NON-REACTIVE (non-immune) 5.0 TO 9.9 EQUIVOCAL >=10.0 REACTIVE (immune) Segmented neutrophils/100 WBC (Bld) 64 % 36 - 65 % [place] Segs Absolute 5.42 [place] T. pallidum, IgG NONREACTIVE NONREACTIVE [place] Comment on above: T. pallidum antibodies are not detected. There is no serological evidence of infection with T. pallidum (early primary syphilis cannot be excluded). Retest in 2-4 weeks if syphilis is clinically suspect. WBC (Bld) [#/Vol] 0.0 10*3/uL 0.0 per 100 WBC [place] WBC (Bld) [#/Vol] 8.4 10*3/uL [place] WBC Morphology NOT REPORTED [place] TYPE AND SCREENon 0 06-14-2020 ABO/Rh Positive [place] Type + Scrnon 06-14 Type + Scrn Negative Normal [facility] Comment on above: Performed By: #### P RTYS #### [facility] [employer] [address] [place] [address] Head Of Sales Promotion: Gavin Hill MD US OB 14 PLUS WEEKS SINGLE O R FIRST GESTATIONon 06-01-2020 US OB 14 PLUS WEEKS SINGLE OR FIRST GESTATION EXAMINATION: TRANSABDOMINAL SECOND/THIRD TRIMESTER OBSTETRIC PELVIC ULTRASOUND WITH COLOR DOPPLER FLOW 06/01/2020 1:54 pm TECHNIQUE: TRANSABDOMINAL PELVIC ULTRASOUND WITH COLOR DOPPLER FLOW HISTORY: ORDERING SYSTEM PROVIDED HISTORY: Missed menses TECHNOLOGIST PROVIDED HISTORY: Acuity: Acute Type of Exam: Initial , check dates and viability FINDINGS: GENERAL OBSERVATIONS: : Single CARDIAC ACTIVITY: Yes HEART RATE: 139 beats per minute BODY AND LIMB MOVEMENTS: Yes POSITION: Cephalic PLACENTA LOCATION: Anterior JAYRO: 13.6 ANATOMY: Limited exam to assess for dating and viability. survey was not performed. ESTIMATED AGE: BY LMP: Unsure CURRENT US: 20 weeks 5 days; TSERING 10/14/2020 ESTIMATED WEIGHT: 360 grams MEASUREMENTS: BPD: 5 cm, correlating with a gestational age of 21 weeks 1 day HEAD CIRCUMFERENCE: 18.06 cm, correlating with a gestational age of 20 weeks 3 days ABD. CIRCUMFERENCE: 15.69 cm, correlating with a gestational age of 20 weeks 6 days FEMUR LENGTH: 3.24 cm, correlating with a gestational age of 20 weeks 1 day CERVICAL LENGTH: Not measured. IMPRESSION: A single live intrauterine with estimated gestational age of 20 weeks 5 days by ultrasound. Interpreted by: Yury Gayle MD Signed by: Yury Gayle MD 06/01/20 Final result Normal [facility] A single live intrauterine with estimated gestational age of 20 weeks 5 days by ultrasound. [facility] JOSE BILLY EXAMINATION: TRANSABDOMINAL SECOND/THIRD TRIMESTER OBSTETRIC PELVIC ULTRASOUND WITH COLOR DOPPLER FLOW 06/01/2020 1:54 pm TECHNIQUE: TRANSABDOMINAL PELVIC ULTRASOUND WITH COLOR DOPPLER FLOW HISTORY: ORDERING SYSTEM PROVIDED HISTORY: Missed menses TECHNOLOGIST PROVIDED HISTORY: Acuity: Acute Type of Exam: Initial , check dates and viability FINDINGS: GENERAL OBSERVATIONS: : Single CARDIAC ACTIVITY: Yes HEART RATE: 139 beats per minute BODY & LIMB MOVEMENTS: Yes POSITION: Cephalic PLACENTA LOCATION: Anterior JAYRO: 13.6 ANATOMY: Limited exam to assess for dating and viability. survey was not performed. ESTIMATED AGE: BY LMP: Unsure CURRENT US: 20 weeks 5 days; TSERING 10/14/2020 ESTIMATED WEIGHT: 360 grams MEASUREMENTS: BPD: 5 cm, correlating with a gestational age of 21 weeks 1 day HEAD CIRCUMFERENCE: 18.06 cm, correlating with a gestational age of 20 weeks 3 days ABD. CIRCUMFERENCE: 15.69 cm, correlating with a gestational age of 20 weeks 6 days FEMUR LENGTH: 3.24 cm, correlating with a gestational age of 20 weeks 1 day CERVICAL LENGTH: Not measured. [facility] JOSE BILLY [place], pn Incoming Radiant Results From [employer] - 06/01/2020 9:29 PM EDT EXAMINATION: TRANSABDOMINAL SECOND/THIRD TRIMESTER OBSTETRIC PELVIC ULTRASOUND WITH COLOR DOPPLER FLOW 06/01/2020 1:54 pm TECHNIQUE: TRANSABDOMINAL PELVIC ULTRASOUND WITH COLOR DOPPLER FLOW HISTORY: ORDERING SYSTEM PROVIDED HISTORY: Missed menses TECHNOLOGIST PROVIDED HISTORY: Acuity: Acute Type of Exam: Initial , check dates and viability FINDINGS: GENERAL OBSERVATIONS: : Single CARDIAC ACTIVITY: Yes HEART RATE: 139 beats per minute BODY & LIMB MOVEMENTS: Yes POSITION: Cephalic PLACENTA LOCATION: Anterior JAYRO: 13.6 ANATOMY: Limited exam to assess for dating and viability. survey was not performed. ESTIMATED AGE: BY LMP: Unsure CURRENT US: 20 weeks 5 days; TSERING 10/14/2020 ESTIMATED WEIGHT: 360 grams MEASUREMENTS: BPD: 5 cm, correlating with a gestational age of 21 weeks 1 day HEAD CIRCUMFERENCE: 18.06 cm, correlating with a gestational age of 20 weeks 3 days ABD. CIRCUMFERENCE: 15.69 cm, correlating with a gestational age of 20 weeks 6 days FEMUR LENGTH: 3.24 cm, correlating with a gestational age of 20 weeks 1 day CERVICAL LENGTH: Not measured. IMPRESSION: A single live intrauterine with estimated gestational age of 20 weeks 5 days by ultrasound. [facility], [place] Cult,Urineon 05-19-2020 Cult,Urine Specimen Description .CLEAN CATCH URINE Special Requests NOT REPORTED Culture NO GROWTH Report Status FINAL 05/18/2020 Normal [facility] Comment on above: Performed By: #### U #### [address] [id number] Head Of Sales Promotion: Gavin Hill MD Chlamydia/GC,DNA Ampon 05-18 Chlamydia Probe Negative Normal NEG [facility] Comment on above: Result Comment: CHLA MYDIA TRACHOMATIS DNA not detected by nucleic acid amplification. This test is intended for medical purposes only and is not valid for the evaluation of suspected sexual abuse or for other forensic purposes. In certain contexts, culture may be required to meet applicable laws and regulations for diagnosis of C. trachomatis and N. gonorrhoeae infections. Per 2014 CDC recommendations, this test does not include confirmation of positive results by an alternative nucleic acid target. Performed By: #### S WCGP #### [address] [address] Head Of Sales Promotion: Gavin Hill MD Gonorrhea Probe Negative Normal NEG [facility] Comment on above: Result Comment: NEIS SERIA GONORRHOEAE DNA not detected by nucleic acid amplification. This test is intended for medical purposes only and is not valid for the evaluation of suspected sexual abuse or for other forensic purposes. In certain contexts, culture may be required to meet applicable laws and regulations for diagnosis of C. trachomatis and N. gonorrhoeae infections. Per 2014 CDC recommendations, this test does not include confirmation of positive results by an alternative nucleic acid target. Performed By: #### S WCGP #### [address] [phone] Head Of Sales Promotion: Gavin Hill MD Drug Scr, Abuse, Uron 2019 Amphetamine(s),Ur Negative Normal NEG [facility] Comment on above: Result Comment: (Positive cutoff 1000 ng/mL) Performed By: #### U A, TORO #### [facility] [employer] [address] [place] [phone] Head Of Sales Promotion: Gavin Hill MD Barbiturate(s),Ur Negative Normal NEG [facility] Comment on above: Result Comment: (Positive cutoff 200 ng/mL) Performed By: #### U A, TORO #### [facility] [employer] [address] [place] [id number] Head Of Sales Promotion: Gavin Hill MD Base excess Calc (Bld) [Moles/Vol] Negative Normal NEG [facility] Comment on above: Result Comment: (Positive cutoff 300 ng/mL) Performed By: #### U A, TORO #### [address] [address] Head Of Sales Promotion: Gavin Hill MD Benzodiazepine(s) Negative Normal NEG [facility] Comment on above: Result Comment: (Positive cutoff 200 ng/mL) Performed By: #### U A, TORO #### [facility] [employer] [address] [place] [address] Head Of Sales Promotion: Gavin Hill MD Cannabinoid(s),Ur Negative Normal NEG [facility] Comment on above: Result Comment: (Positive cutoff 50 ng/mL) Performed By: #### U A, TORO #### [facility] [employer] [address] [place] [address] Head Of Sales Promotion: Gavin Hill MD Interpretive Info Assay provides medic al screening only. The absence of expected drug(s) and/or Normal [facility] Comment on above: Result Comment: meta bolite(s) may indicate diluted or adulterated urine, limitations of testing or timing of collection. Testing for legal purposes should be confirmed by another method. To request confirmation of test result, please call the lab within 7 days of sample submission. Performed By: #### U A, TORO #### [facility] [employer] [address] [place] [phone] Head Of Sales Promotion: Gavin Hill MD Methadone Ql (U) Negative Normal NEG [facility] Comment on above: Result Comment: (Positive cutoff 300 ng/mL) Performed By: #### U A, TORO #### [facility] [employer] [address] [place] [phone] Head Of Sales Promotion: Gavin Hill MD Opiate(s), Ur Negative Normal NEG [facility] Comment on above: Result Comment: (Positive cutoff 300 ng/mL) Performed By: #### U A, TORO #### [address] [address] Head Of Sales Promotion: Gavin Hill MD Oxycodone, Urine Negative Normal NEG [facility] Comment on above: Result Comment: (Positive cutoff 100 ng/mL) Performed By: #### U A, TORO #### [facility] [employer] [address] [place] [address] Head Of Sales Promotion: Gavin Hill MD Phencyclidine, Ur Negative Normal NEG [facility] Comment on above: Result Comment: (Positive cutoff 25 ng/mL) Performed By: #### U A, TORO #### [facility] [employer] [address] [place] [address] Head Of Sales Promotion: Gavin Hill MD Buprenorphrine, Ur NOT REPORTED Normal NEG [facility] Comment on above: Performed By: #### U A, TORO #### [facility] [employer] [address] [place] [address] Head Of Sales Promotion: Gavin Hill MD MDMA, Urine NOT REPORTED Normal NEG [facility] Comment on above: Performed By: #### U A, TORO #### [facility] [employer] [address] [place] [phone] Head Of Sales Promotion: Gavin Hill MD Methamphetamine, Ur NOT REPORTED Normal NEG [facility] Comment on above: Performed By: #### U A, TORO #### [address] [address] Head Of Sales Promotion: Gavin Hill MD Propoxyphene,Urine NOT REPORTED Normal NEG [facility] Comment on above: Performed By: #### U A, TORO #### [address] [address] Head Of Sales Promotion: Gavin Hill MD Tricyclic antidepressants Screen Ql (U) NOT REPORTED Normal NEG [facility] Comment on above: Performed By: #### U A, TORO #### [address] [address] Head Of Sales Promotion: Gavin Hill MD Urinalysis, Routineon 2019 Acetoacetic Acid,Ur Negative Normal NEG [facility] Comment on above: Performed By: #### U A, TORO #### [address] [address] Head Of Sales Promotion: Gavin Hill MD Bilirubin, SemiQt,Ur Negative Normal NEG [facility] Comment on above: Performed By: #### U A, TORO #### [address] [address] Head Of Sales Promotion: Gavin Hill MD Color (U) YELLOW Normal YEL [facility] Comment on above: Performed By: #### U A, TORO #### [facility] [employer] [address] [place] [address] Head Of Sales Promotion: Gavin Hill MD Comment Microscopic exam not performed based on chemical results unless requested in Normal [facility] Comment on above: Result Comment: orig inal order. Performed By: #### U A, TORO #### [address] [address] Head Of Sales Promotion: Gavin Hill MD Glucose Ql (U) Negative Normal NEG [facility] Comment on above: Performed By: #### U A, TORO #### [address] [address] Head Of Sales Promotion: Gavin Hill MD Hemoglobin, Ur Negative Normal NEG [facility] Comment on above: Performed By: #### U A, TORO #### [address] [address] Head Of Sales Promotion: Gavin Hill MD Leukocyte esterase Test strip Ql (U) Negative Normal NEG [facility] Comment on above: Performed By: #### U A, TORO #### [address] [address] Head Of Sales Promotion: Gavin Hill MD Nitrite,Ur Negative Normal NEG [facility] Comment on above: Performed By: #### U A, TORO #### [address] [address] Head Of Sales Promotion: Gavin Hill MD pH (U) 6.5 [pH] Normal 5.0-8.0 [facility] Comment on above: Performed By: #### U A, TORO #### [address] [address] Head Of Sales Promotion: Gavin Hill MD Protein Ql (U) Negative Normal NEG [facility] Comment on above: Performed By: #### U A, TORO #### [address] [address] Head Of Sales Promotion: Gavin Hill MD Specific gravity (U) [Rel density] 1.017 Normal 1.005-1.030 [facility] Comment on above: Performed By: #### U A, TORO #### [address] [address] Head Of Sales Promotion: Gavin Hill MD Turbidity CLEAR Normal CLEAR [facility] Comment on above: Performed By: #### U A, TORO #### [address] [phone] Head Of Sales Promotion: Gavin Hill MD Urobilinogen,Ur Normal Normal NORM [facility] Comment on above: Performed By: #### U A, TORO #### [address] [phone] Head Of Sales Promotion: Gavin Hill MD Vaginitis DNA Probeon 2019 Vaginitis DNA Probe Specimen Description .VAGINA Special Requests NOT REPORTED Direct Exam NEGATIVE for Trichomonas vaginalis NEGATIVE for Gardnerella vaginalis NEGATIVE for Ren sp. Method of testing is a DNA probe intended for detection and identification of Ren species, Gardnerella vaginalis, and Trichomonas vaginalis nucleic acid in vaginal fluid specimens from patients with symptoms of vaginitis/vaginosis. Report Status FINAL 05/18/2020 [facility] Comment on above: Performed By: #### V AGDNA #### [address] [phone] Head Of Sales Promotion: Gavin Hill MD Cytologyon 05-17-2020 Cytology (NOTE) INTERPRETATION Cervical material, (ThinPrep vial, Imaging-assisted review): Specimen Adequacy: Satisfactory for evaluation. - Endocervical/transforma tion zone component present. Descriptive Diagnosis: Negative for intraepithelial lesion or malignancy. Inspector Of Weights And Measures: MARINO Martel(ASCP) Electronically Signed Out amy/05/20/2020 Source: 1: Cervical material, (ThinPrep vial, Imaging-assisted review) Clinical History High Risk HPV DNA testing is requested if the diagnosis is ASC-US GYNECOLOGIC CYTOLOGY REPORT Patient Name: BRANNON MOORE [facility] Rec: [id number] Path Number: [id number] [facility] [employer] [facility] ANATOMIC PATHOLOGY [address] [place] [address]. [place], [place] [phone] [facility] Comment on above: Performed By: #### P PPVP #### [employer] [address] [place] [address] [phone] Head Of Sales Promotion: Gavin Hill MD Surgical Pathologyon 019 Surgical Pathology Report [id number] [employer] [facility] ANATOMIC PATHOLOGY [address] [place] [phone] SURGICAL PATHOLOGY CONSULTATION Patient Name: BRANNON MOORE [facility] Rec: [id number] Path Number: [id number] Collected: 09/02/2019 Received: 09/02/2019 Reported: 09/03/2019 11:03 -- Diagnosis -- PLACENTA, 40 3/7 WEEKS: TERM PLACENTA WITH INCREASED BASILAR PLACENTAL MICROCALCIFICATIONS, UNREMARKABLE MEMBRANES AND THREE-VESSEL UMBILICAL CORD. Jazzy Edwards Electronically Signed Out ajb/09/03/2019 Clinical Information Pre-op Diagnosis: 24 Y/O, @ 40 W, 3 D, EIOL, LATE PNC, H/O GDMA2, H/O THC Operative Findings: , M, AP/9, WT: 8#, 8 OZ, PLACENTA & MEMBRANES Source of Specimen 1: PLACENTA AND MEMBRANES Gross Description BRANNON MOORE PLACENTA Placenta with attached membranes and umbilical cord. UMBILICAL CORD Length: 26.0 cm Diameter: 1.3 cm True knots: No Number of vessels: 3 Spiraling: Normal Insertion into surface: Paracentral MEMBRANES Color: Hernandez-frazier, focally opacified Meconium staining: No SURFACE Color: Purple-hernandez, with a normal array of surface vessels Subchorionic fibrin: Marginal and minimal and involves less than 5% of the disc MATERNAL SURFACE Cotyledons: -All present and intact: Yes -Focal lesions: No Placental size: 20.0 x 18.0 x 2.5 cm Shape: Ovoid Weight: 454 grams Number of cassettes: 3cs tm Microscopic Description Umbilical cord: Negative for funisitis Membranes: Negative for chorioamnionitis Meconium staining: No Infarcts: No Intervillous thrombi: No Subchorionic fibrin: Slight increase Villous maturation: Mature Nucleated erythrocytes in villous capillaries: Rare Other: Increased basilar microcalcifications [facility] [place], [place] CBC auto differentialon 10-1 4-2019 Basophils (Bld) [#/Vol] 10*3/uL [place] Basophils/100 WBC (Bld) 0 % 0 - 2 % [place] Differential Type NOT REPORTED [place] Eosinophils (Bld) [#/Vol] 0.04 10*3/uL [place] Eosinophils/100 WBC (Bld) 0 % Low 1 - 4 % [place] Erythrocyte distribution width (RBC) [Ratio] 12.4 % 11.8 - 14.4 % [place] Hematocrit (Bld) [Volume fraction] 35.5 % Low 36.3 - 47.1 % [place] Hemoglobin (Bld) [Mass/Vol] 11.9 g/dL 11.9 - 15.1 g/dL [place] Immature granulocytes (Bld) [#/Vol] 0.07 10*3/uL [place] Immature granulocytes (Bld) [#/Vol] 1 % High 0 [place] Interpretation and review of laboratory results Abnormal [place] Lymphocytes (Bld) [#/Vol] 2.12 10*3/uL [place] Lymphocytes/100 WBC (Bld) 16 % Low 24 - 43 % [place] MCH (RBC) [Entitic mass] 28.8 pg 25.2 - 33.5 pg [place] MCHC (RBC) [Mass/Vol] 33.5 g/dL 28.4 - 34.8 g/dL [place] MCV (RBC) [Entitic vol] 86.0 fL 82.6 - 102.9 fL [place] Monocytes (Bld) [#/Vol] 0.60 10*3/uL [place] Monocytes/100 WBC (Bld) 5 % 3 - 12 % [place] Platelet mean volume (Bld) [Entitic vol] 11.2 fL 8.1 - 13.5 fL [place] Platelets (Bld) [#/Vol] 230 10*3/uL [place] Platelets (Bld) [#/Vol] NOT REPORTED [place] RBC (Bld) [#/Vol] 4.13 10*6/uL 3.95 - 5.1 1 m/uL [place] RBC morphology finding Nom (Bld) NOT REPORTED [place] Segmented neutrophils/100 WBC (Bld) 78 % High 36 - 65 % [place] Segs Absolute 10.06 High [place] WBC (Bld) [#/Vol] 12.9 10*3/uL [place] WBC (Bld) [#/Vol] 0.0 10*3/uL 0.0 per 100 WBC M [place] WBC Morphology NOT REPORTED [place] DRUG SCREEN MULTI URINEon Amphetamine Screen, Ur Negative NEGATIVE [place] Comment on above: (Positive cutoff 1000 ng/mL) Barbiturate Screen, Ur Negative NEGATIVE [place] Comment on above: (Positive cutoff 200 ng/mL) Benzodiazepine Screen, Urine Negative NEGATIVE [place] Comment on above: (Positive cutoff 200 ng/mL) Buprenorphine Urine NOT REPORTED NEGATIVE [place] Cannabinoid Scrn, Ur Negative NEGATIVE [place] Comment on above: (Positive cutoff 50 ng/mL) Cocaine Metabolite, Urine Negative NEGATIVE [place] Comment on above: (Positive cutoff 300 ng/mL) MDMA, Urine NOT REPORTED NEGATIVE [place] Methadone Screen, Urine Negative NEGATIVE [place] Comment on above: (Positive cutoff 300 ng/mL) Methamphetamine, Urine NOT REPORTED NEGATIVE [place] Opiates, Urine Negative NEGATIVE [place] Comment on above: (Positive cutoff 300 ng/mL) Oxycodone Screen, Ur Negative NEGATIVE [place] Comment on above: (Positive cutoff 100 ng/mL) Phencyclidine, Urine Negative NEGATIVE [place] Comment on above: (Positive cutoff 25 ng/mL) Propoxyphene, Urine NOT REPORTED NEGATIVE [place] Test Information Assay provides medic al screening only. The absence of expected drug(s) and/or metabolite(s) may indicate diluted or adulterated urine, limitations of testing or timing of collection. [place] Comment on above: Testing for legal pu rposes should be confirmed by another method. To request confirmation of test result, please call the lab within 7 days of sample submission. Tricyclic Antidepressants, Urine NOT REPORTED NEGATIVE [place] T. pallidum Abon 09-01-2019 T. pallidum, IgG NONREACTIVE NONREACTIVE [place] Comment on above: T. pallidum antibodies are not detected. There is no serological evidence of infection with T. pallidum (early primary syphilis cannot be excluded). Retest in 2-4 weeks if syphilis is clinically suspect. TYPE AND SCREENon 09-01-2019 ABO/Rh Positive [place] Arm Band Number [id number] [place] Expiration Date 09/04/2019 [place] Urine Drug Screenon 08-26-20 19 Amphetamine Screen, Ur Negative NEGATIVE [place] Comment on above: (Positive cutoff 1000 ng/mL) Barbiturate Screen, Ur Negative NEGATIVE [place] Comment on above: (Positive cutoff 200 ng/mL) Benzodiazepine Screen, Urine Negative NEGATIVE [place] Comment on above: (Positive cutoff 200 ng/mL) Buprenorphine Urine NOT REPORTED NEGATIVE [place] Cannabinoid Scrn, Ur Negative NEGATIVE [place] Comment on above: (Positive cutoff 50 ng/mL) Cocaine Metabolite, Urine Negative NEGATIVE [place] Comment on above: (Positive cutoff 300 ng/mL) MDMA, Urine NOT REPORTED NEGATIVE [place] Methadone Screen, Urine Negative NEGATIVE [place] Comment on above: (Positive cutoff 300 ng/mL) Methamphetamine, Urine NOT REPORTED NEGATIVE [place] Opiates, Urine Negative NEGATIVE [place] Comment on above: (Positive cutoff 300 ng/mL) Oxycodone Screen, Ur Negative NEGATIVE [place] Comment on above: (Positive cutoff 100 ng/mL) Phencyclidine, Urine Negative NEGATIVE [place] Comment on above: (Positive cutoff 25 ng/mL) Propoxyphene, Urine NOT REPORTED NEGATIVE [place] Test Information Assay provides medic al screening only. The absence of expected drug(s) and/or metabolite(s) may indicate diluted or adulterated urine, limitations of testing or timing of collection. [place] Comment on above: Testing for legal pu rposes should be confirmed by another method. To request confirmation of test result, please call the lab within 7 days of sample submission. Tricyclic Antidepressants, Urine NOT REPORTED NEGATIVE [place] Otheron 07-24-2019 Direct Exam Positive Abnormal [place] Vaginitis DNA Probeon 2018 Direct Exam Negative [place] Direct Exam Method of testing is a DNA probe intended for detection and identification of Ren species, Gardnerella vaginalis, and Trichomonas vaginalis nucleic acid in vaginal fluid specimens from patients with symptoms of vaginitis/vaginosis. [place] Interpretation and review of laboratory results Abnormal [place] Special Requests NOT REPORTED [place] Specimen Description .VAGINA [place] Vital Signs Date Time Vital Sign Value Performing Clinician Faci lity 10-09-2020 21:24-0500 Body Temperature 98.29 [degF] Dimitrios Ledesmataker [place] 10-09-2020 21:24-0500 BP Diastolic 70 mm[Hg] [place] 10-09-2020 21:24-0500 BP Systolic 111 mm[Hg] [place] 10-09-2020 21:24-0500 Pulse (Heart Rate) 52 /min Dimitrios [place] 10-09-2020 21:24-0500 Respiratory Rate 18 /min D[place] 10-08-2020 20:20-0500 Pulse Oximetry 99 % D[place] 10-08-2020 08:29-0500 BMI (Body Mass Index) 23.7 kg/m2 Dimitrios Pinzon [place] 10-08-2020 08:29-0500 Body weight 58.79 kg [place] 10-08-2020 08:29-0500 Height 157.5 cm Dimitrios Ledesmataker [place], [place] 09-04-2019 07:48-0400 Body Temperature 99.19 [degF] [facility] [place] 09-04-2019 07:48-0400 BP Diastolic 70 mm[Hg] [facility] [place] 09-04-2019 07:48-0400 BP Systolic 117 mm[Hg] [facility] [place] 09-04-2019 07:48-0400 Pulse (Heart Rate) 62 /min [facility] [place] 09-04-2019 07:48-0400 Respiratory Rate 16 /min [facility] [place] 09-02-2019 08:50-0400 Pulse Oximetry 99 % [facility] [place] 09-01-2019 19:18-0400 BMI (Body Mass Index) 24.19 kg/m2 Breana Henry [facility], [place] 09-01-2019 19:18-0400 Body weight 58.06 kg [facility] [place] 09-01-2019 19:18-0400 Height 154.9 cm [place] Encounters Encounter Date Encounter Type Care Provider Facility Start: 10-16-2023 End: 10-16-2023 ambulatory JUANA ODOM Not Available Start: 11-20-2022 End: 11-20-2022 ambulatory ALEXIS ARNOLD Facility: Start: 10-08-2020 End: 10-10-2020 Evaluation and management of inpatient DIMITRIOS J [facility] Start: 10-08-2020 End: 10-09-2020 Evaluation and management of inpatient Dimitrios Cochran Work Phone: [id number] Start: 10-04-2020 End: 10-09-2020 Patient encounter procedure [facility] Start: 10-04-2020 End: 10-08-2020 Subsequent hospital visit by physician Abad Gay 4 [facility] PRE-ADMIT TESTING Start: 09-29-2020 End: 09-30-2020 Patient encounter procedure DIMITRIOS Joaquin MARGRET [facility] Start: 09-29-2020 End: 09-29-2020 Subsequent hospital visit by physician MICHEL ALMEIDA Comment on above: Vaginal itching Start: 09-16-2020 End: 09-16-2020 Patient encounter procedure DIMITRIOS OSWALD [facility] Start: 09-15-2020 End: 09-15-2020 Subsequent hospital visit by physician MICHEL YUNG DOCTOR Comment on above: 35 weeks gestation o f Start: 09-01-2020 End: 09-02-2020 Patient encounter procedure DIMITRIOS OSWALD [facility] Start: 09-01-2020 End: 09-01-2020 Subsequent hospital visit by physician MICHEL [facility] Comment on above: 25 weeks gestation o f Start: 06-14-2020 End: 06-15-2020 Patient encounter procedure DIMITRIOS OSWALD [facility] Start: 06-14-2020 End: 06-14-2020 Subsequent hospital visit by physician MICHEL HAWKINS [facility] Comment on above: Missed menses Start: 06-01-2020 End: 06-04-2020 Patient encounter procedure DIMITRIOS Joaquin [facility] Start: 06-01-2020 End: 06-03-2020 Subsequent hospital visit by physician Collette Machuca [address] Ultrasound Comment on above: Missed menses Start: 05-18-2020 End: 05-18-2020 Patient encounter procedure DIMITRIOS Joaquin [facility] Start: 05-17-2020 End: 05-17-2020 Subsequent hospital visit by physician MICHEL ALMEIDA Comment on above: Missed menses Start: 09-01-2019 End: 09-04-2019 Evaluation and management of inpatient Breana Henry Work Phone: [facility] Start: 08-25-2019 End: 08-25-2019 Subsequent hospital visit by physician MICHEL YUNG DOCTOR Start: 07-24-2019 End: 07-24-2019 Subsequent hospital visit by physician MICHEL YUNG DOCTOR Comment on above: 34 weeks gestation o f ; Normal repeat , antepartum; Vaginal discharge Start: 07-08-2019 End: 07-08-2019 Subsequent hospital visit by physician MICHEL YUNG DOCTOR Comment on above: Urinary tract infect ion in mother during third trimester of Start: 09-03-2017 End: 09-04-2017 Ambulatory DEFAULT PHYSICIAN Facility:[facility] Procedures Date Procedure Procedure Detail Performing Clinician Start: 10-09-2020 DISCHARGE PATIENT GARY OSWALD Start: 10-09-2020 ASSESS DIMITRIOS ALL EN Start: 10-09-2020 NURSING COMMUNICATION A NITA OSWALD Start: 10-09-2020 SALINE LOCK IV DIMITRIOS Winter LLEN Start: 10-09-2020 STRAIGHT CATH DIMITRIOS AL DINORAH Start: 10-09-2020 AMBULATE PATIENT DIMITRIOS OSWALD Start: 10-09-2020 DIET GENERAL DIMITRIOS ALL EN Start: 10-09-2020 FULL CODE DIMITRIOS ALL EN Start: 10-09-2020 ICE TO AFFECTED AREA AM JUSTINO OSWALD Start: 10-09-2020 MISCELLANEOUS NURSIN G CARE ORDER (SPECIFY) DIMITRIOS OSWALD Start: 10-09-2020 NOTIFY PHYSICIAN (SPECIFY) DIMITRIOS OSWALD Start: 10-09-2020 VITAL SIGNS DIMITRIOS ALL EN Start: 10-09-2020 TRANSFER PATIENT DIMITRIOS OSWALD Start: 10-08-2020 IP CONSULT TO SOCIAL WORK DIMITRIOS OSWALD Start: 10-08-2020 Drug screen class list a DIMITRIOS OSWALD Start: 10-08-2020 Antibody treponema pallidum DIMITRIOS OSWALD Start: 10-08-2020 Blood count complete auto&auto difrntl wbc DIMITRIOS OSWALD Start: 10-08-2020 TYPE AND SCREEN DIMITRIOS OSWALD Start: 10-08-2020 Drug screen class list a Uyen Cardona Work Phone: Start: 10-08-2020 Antibody screen Dimitrios Cochran Start: 10-08-2020 COVID-19 DIMITRIOS ALL EN Start: 10-08-2020 Blood count complete auto&auto difrntl wbc Ueyn Cardona Work Phone: Start: 10-08-2020 Blood typing serologic abo Uyen Cardona Work Phone: Start: 10-08-2020 T. PALLIDUM AB Uyen merritt Work Phone: Start: 10-08-2020 PATIENT STATUS (DIRECT) DIMITRIOS OSWALD Start: 10-08-2020 COVID-19 Uyen sanon Work Phone: Start: 10-04-2020 COVID-19 Start: 09-29-2020 Iadna ren specie s direct probe tq DIMITRIOS OSWALD Start: 09-16-2020 Cul prsmptv pthgnc o rganism scrn w/colony estimj DIMITRIOS OSWALD Start: 09-01-2020 Blood count complete auto&auto difrntl wbc DIMITRIOS OSWALD Start: 09-01-[address] gtt 3 specimens DIMITRIOS OSWALD Start: 09-01-2020 Blood count complete auto&auto difrntl wbc Dimitrios Cochran Work Phone: Start: 09-01-[address] gtt 3 specimens Dimitrios Cochran Work Phone: Start: 06-14-2020 Antibody screen Start: 06-14-2020 Antibody hiv-1&hiv-2 single result DIMITRIOS OSWALD Start: 06-14-2020 Obstetric panel DIMITRIOS OSWALD Start: 06-14-2020 TYPE AND SCREEN DIMITRIOS OSWALD Start: 06-14-2020 Antibody hiv-1&hiv-2 single result Dimitrios Cochran Work Phone: Start: 06-14-2020 Blood typing serologic abo Dimitrios Winter [employer] Work Phone: Start: 06-14-2020 Obstetric panel Dimitrios Winter [employer] Work Phone: Start: 06-01-2020 Us preg uterus after 1st trimest 1/1st gestation DIMITRIOS OSWALD Start: 06-01-2020 Us preg uterus after 1st trimest 1/1st gestation Dimitrios Dietrichr Work Phone: Start: 05-18-2020 Culture bacterial quanttative colony count urine DIMITRIOS OSWALD Start: 05-18-2020 Iadna ren specie s direct probe tq DIMITRIOS OSWALD Start: 05-18-2020 Drug screen class list a DIMITRIOS OSWALD Start: 05-18-2020 Iadna multiple organ isms amplified probe tq DIMITRIOS OSWALD Start: 05-18-2020 Urnls dip stick/tabl et rgnt auto w/o microscopy DIMITRIOS OSWALD Start: 09-02-2019 Level iv surg pathol ogy gross&microscopic exam Breana Henry Work Phone: Start: 09-01-2019 Antibody screen Breana Henry Start: 09-01-2019 Drug screen class list a Lexie Cowan Work Phone: Start: 09-01-2019 Blood count complete auto&auto difrntl wbc Lexie Cowan Work Phone: Start: 09-01-2019 Blood typing serologic abo Lexie Cowan Work Phone: Start: 09-01-2019 T. PALLIDUM AB Lexie Cowan Work Phone: Start: 08-25-2019 Drug screen class list a Heather Garduno Work Phone: Start: 07-24-2019 Iadna ren specie s direct probe tq Nadya B Tri Work Phone: Plan of Treatment Date Care Activity Detail Author Start: 05-17-2023 Screening for malign ant neoplasm of cervix Cervical cancer [place] Start: 05-17-2021 Screening for Chlamy riddhi trachomatis Chlamydia [place] Start: 11-17-2020 End: 11-17-2020 Visit 11/17/2020 Visit Obstetrics and Gynecology Dimitrios Cochran MD [address] [facility] [address] [place], [place] [id number] [facility] Start: 10-20-2020 End: 10-20-2020 Routine [facility] Start: 10-13-2020 End: 10-13-2020 Routine 10/13/2020 Routine Obstetrics and Gynecology Dimitrios Cochran MD [address] [place], [place] [id number] [facility] Start: 10-06-2020 End: 10-06-2020 Routine 10/06/2020 Routine Obstetrics and Gynecology Dimitrios Cochran MD [address] [place], [place] [id number] [facility] Start: 10-04-2020 End: 10-04-2020 Appointment 10/04/2020 Appointment Pre-Admission Testing [facility] PRE-ADMIT TESTING Start: 09-29-2020 End: 09-29-2020 Routine 09/29/2020 Routine Obstetrics and Gynecology Dimitrios Cochran MD [address] [place] [address] [phone] [facility] Start: 09-22-2020 End: 09-22-2020 Routine 09/22/2020 Routine Obstetrics and Gynecology Dimitrios Cochran MD [address] [place] [address] [phone] [facility] Start: 09-15-2020 End: 09-15-2020 Routine 09/15/2020 Routine Obstetrics and Gynecology Dimitrios Cochran MD [address] [facility] [address] [place] [address] [phone] [facility] Start: 09-14-2020 End: 09-14-2020 Routine 09/14/2020 Routine Perinatology [facility] Start: 07-20-2020 Influenza vaccination [facility] Start: 07-14-2020 End: 07-14-2020 Routine 07/14/2020 Routine Perinatology [facility] Start: 07-06-2020 End: 07-06-2020 Routine 07/06/2020 Routine Obstetrics and Gynecology Dimitrios Cochran MD [address] [place] [address] [phone] Start: 06-09-2020 End: 06-09-2020 Initial 06/09/2020 Initial Obstetrics and Gynecology Dimitrios Cochran MD [address] [place] [address] [phone] [facility] SCOURING TRAIN OPERATOR [facility] Start: 04-30-2020 Chlamydia screen Chlamydia screen [place], [place] Start: 04-30-2020 Screening for Chlamy riddhi trachomatis Chlamydia screen [place], [place] Start: 09-01-2019 End: 09-01-2019 Routine 09/01/2019 Routine Obstetrics and Gynecology Lexie Cowan, CUSTOMER SERVICE ASSISTANT [facility] [address] [facility] [address] [place] [address] [facility] Start: 08-07-2019 End: 08-07-2019 Routine 08/07/2019 Routine Obstetrics and Gynecology Sarah Nelson [facility] [address] [facility] [address] [place] [address] [phone] [facility] Start: 07-31-2019 End: 07-31-2019 Routine 07/31/2019 Routine Obstetrics and Gynecology Sarah Nelson [facility] [address] [facility] [address] [place] [address] [phone] [facility] Start: 07-22-2019 End: 07-22-2019 Routine 07/22/2019 Routine Obstetrics and Gynecology Sarah Nelson [facility] [address] [facility] [address] [place] [address] [phone] [facility] Start: 07-20-2019 Influenza vaccination Flu vaccine (# 1) [place], [place] Start: 07-10-2019 End: 07-10-2019 Routine 07/10/2019 Routine Perinatology [facility] Start: 2017 Cervical cancer screen Cervical canc er screen [place], [place] Start: 2017 Screening for malign ant neoplasm of cervix Cervical cancer [place] Start: 2015 DTaP/Tdap/Td vaccine (1 - Tdap) DTaP/Tdap/Td vaccine (1 - Tdap) [place] Start: 2011 HPV vaccine (1 - Fem henry 3-dose series) HPV vaccine (1 - Female 3-dose series) [place] Start: 2009 Varicella Vaccine (1 of 2 - 13+ 2-dose series) Varicella Vaccine (1 of 2 - 13+ 2-dose series) [place] Start: 2007 HPV vaccine (1 - 2-d ose series) HPV vaccine (1 - 2-dose series) [place] Start: 1997 Varicella vaccine (1 of 2 - 2-dose childhood series) Varicella vaccine (1 of 2 - 2-dose childhood series) [place] End: 07-08-2019 Bacteria identified Cx Nom (U) Urine Culture Microbiology Routine Urinary tract infection in mother during third trimester of 1 Occurrences starting 07/08/2019 until 07/08/2019 [place] Comment on above: 1 Occurrences starti ng 07/08/2019 until 07/08/2019 Bacteria identified Cx Nom (U) [place] End: 05-17-2020 Chlamydia Trachomatis & Neisseria gonorrhoeae (GC) by amplified detection Chlamydia Trachomatis & Neisseria gonorrhoeae (GC) by amplified detection Microbiology Routine Missed menses 1 Occurrences starting 05/17/2020 until 05/17/2020 [place] Comment on above: 1 Occurrences starti ng 05/17/2020 until 05/17/2020 Chlamydia Trachomati s & Neisseria gonorrhoeae (GC) by amplified detection Chlamydia Trachomatis & Neisseria gonorrhoeae (GC) by amplified detection Microbiology Routine Missed menses 05/17/2020 11:54 PM EDT [place] End: 10-05-2020 COVID-19 COVID-19 Lab Routine One Time for 1 Occurrences starting 10/05/2020 until 10/05/2020 [place] Comment on above: One Time for 1 Occur rences starting 10/05/2020 until 10/05/2020 End: 09-15-2020 Culture, Strep B Screen, Vaginal/Rectal Culture, Strep B Screen, Vaginal/Rectal Microbiology Routine 35 weeks gestation of 1 Occurrences starting 09/15/2020 until 09/15/2020 [place] Comment on above: 1 Occurrences starti ng 09/15/2020 until 09/15/2020 End: 05-17-2020 Culture, Urine Culture, Urine Microbiology Routine Missed menses 1 Occurrences starting 05/17/2020 until 05/17/2020 [place] Comment on above: 1 Occurrences starti ng 05/17/2020 until 05/17/2020 End: 09-01-2019 Specimen to Pathology Specimen to Pathology Lab Routine One Time for 1 Occurrences starting 09/01/2019 until 09/01/2019 [place] Comment on above: One Time for 1 Occur rences starting 09/01/2019 until 09/01/2019 End: 05-17-2020 Urinalysis Urinalysis Lab Routine Missed menses 1 Occurrences starting 05/17/2020 until 05/17/2020 [place] Comment on above: 1 Occurrences starti ng 05/17/2020 until 05/17/2020 Urinalysis Urinalysis Lab R outine Missed menses 05/17/2020 11:54 PM EDT [place] End: 08-25-2019 Urine culture clean catch Urine culture clean catch Microbiology Routine Once for 1 Occurrences starting 08/25/2019 until 08/25/2019 [place] Comment on above: Once for 1 Occurrenc es starting 08/25/2019 until 08/25/2019 Urine culture clean catch Urine culture clean catch Microbiology Routine 08/25/2019 9:07 PM T [place] End: 05-17-2020 Urine Drug Screen Urine Drug Screen Lab Routine Missed menses 1 Occurrences starting 05/17/2020 until 05/17/2020 [place] Comment on above: 1 Occurrences starti ng 05/17/2020 until 05/17/2020 Urine Drug Screen Urine Drug Scr een Lab Routine Missed menses 05/17/2020 11:54 PM EDT [place] End: 05-17-2020 Vaginitis DNA Probe Vaginitis DNA Probe Microbiology Routine Missed menses 1 Occurrences starting 05/17/2020 until 05/17/2020 [place] Comment on above: 1 Occurrences starti ng 05/17/2020 until 05/17/2020 Vaginitis DNA Probe [place] End: 09-29-2020 VAGINITIS DNA PROBE VAGINITIS DNA PROBE Microbiology Routine Vaginal itching 1 Occurrences starting 09/29/2020 until 09/29/2020 [place] Comment on above: 1 Occurrences starti ng 09/29/2020 until 09/29/2020 Immunizations Immunization Date Immunization Notes Care Provider Rebekah larose 09-03-2019 diphtheria, tetanus toxoids and acellular pertussis vaccine, unspecified formulation [employer] [place], [place] NEGATED: Highlighted row has not occurred!10-09-2020 influenza, injectable, quadrivalent, preservative free [place], [place] NEGATED: Highlighted row has not occurred!10-09-2020 tetanus toxoid, reduced diphtheria toxoid, and acellular pertussis vaccine, adsorbed [place] Payers Date Payer Category Payer Unknown [facility] xxxxxxxxxxxx 2014-Present [phone] [address] [facility] [place] [address] xxxxxxxxxxxx [id number] 2014 Unknown [facility] [id number] 2014-Present [phone] [address] [facility] [place] [address] [id number] 1996 Unknown [id number] 1996 Unknown [id number] 1996 Unknown [id number] 1996 Unknown [id number] 1996 Unknown [id number] 1996 Unknown [id number] 1996 Unknown [id number] 1996 Unknown [id number] 1996 Unknown [id number] 1996 Unknown [id number] 9 1959 Unknown [id number] Unknown Social History Date Type Detail Facility Start: 07-08-2019 End: 07-24-2019 Tobacco smoking status NHIS Never smoker [place], [place] Start: 07-08-2019 End: 07-24-2019 Alcohol intake Not Currently [place], [place] Start: 12-07-2018 [place] Sex Assigned At Not on file [place] Start: 05-17-2020 End: 10-08-2020 Alcohol intake Ex-drinker (finding) [facility] Start: 05-17-2020 End: 10-08-2020 Tobacco use and exposure Never used [place], [place] Exposure to SARS-CoV -2 (event) Not sure [place], [place] Summary Purpose Family History No Family History Records FoundNo Family History Records FoundNo Family History Records FoundNo Family History Records FoundNo Family History Records Found Advance Directives No Advanced Directives Records FoundDocuments on File Type Date Recorded Patient Traffic Chief Expl anation Advance Directives and Living Will Power of [employer] Latest Code Status on File Code Status Date Activated Date Inactivated Comments Full Code 09/03/2019 8:19 AM Full Code 09/01/2019 7:45 PM 09/02/2019 10:52 AM Latest Code Status on File Code Status Date Activated Date Inactivated Comments Full Code 09/03/2019 8:19 AM 09/04/2019 3:20 PM Documents on File Type Date Recorded Patient Traffic Chief Expl anation Advance Directives and Living Will Power of [employer] Latest Code Status on File Code Status Date Activated Date Inactivated Comments Full Code 09/03/2019 8:19 AM 09/04/2019 3:20 PM Full Code 09/01/2019 7:45 PM 09/02/2019 10:52 AM Documents on File Type Date Recorded Patient Traffic Chief Expl anation ACP-Advance Directive ACP-Power of [employer] Latest Code Status on File Code Status Date Activated Date Inactivated Comments Full Code 10/08/2020 10:48 PM Full Code 10/08/2020 8:20 AM 10/08/2020 10:48 PM Full Code 09/03/2019 8:19 AM 09/04/2019 3:20 PM Assessments Diagnosis Urinary tract infection in mother during third trimester of Diagnosis High-risk , third trimester 09/02/19 M Apg 8/9 Wt 8#8 Normal delivery Diagnosis Missed menses Absence of menstruation Diagnosis Missed menses Absence of menstruation Diagnosis 25 weeks gestation of state, incidental Diagnosis 35 weeks gestation of state, incidental Diagnosis Vaginal itching Pruritus of genital organs Diagnosis Late care Insufficient care History of marijuana use Smoking Tobacco use disorder HRP (high risk ), third trimester 10/08/20 M Apg 8/9 Wt 7#4 Normal delivery Diagnosis 34 weeks gestation of state, incidental Normal repeat , antepartum Vaginal discharge Leukorrhea, not specified as infective Discharge Instructions * Instructions* Scottie Linton, - 09/02/2019 : Care Instructions Your Care Instructions After childbirth ( period), your body goes through many changes. Some of these changes happen over several weeks. In the hours after delivery, your body will begin to recover from childbirth while it prepares to breastfeed your . You may feel emotional during this time. Your hormones can shift your mood without warning for no clear reason. In the first couple of weeks after childbirth, many women have emotions that change from happy to sad. You may find it hard to sleep. You may cry a lot. This is called the baby blues. These overwhelming emotions often go away within a couple of days or weeks. But it's important to discuss your feelings with your doctor. It is easy to get too tired and overwhelmed during the first weeks after childbirth. Don't try to do too much. Get rest whenever you can, accept help from others, and eat well and drink plenty of fluids. In the first couple of weeks after giving , your doctor or k9 handler may want to check in with you and make a plan for any follow-up care you may need. You will likely have a complete visit in the first 3 months after delivery. At that time, your doctor or k9 handler will check on your recovery from childbirth. He or she will also see how you are doing with your emotions and talk aboutyour concerns or questions. Follow-up care is a hernandez part of your treatment and safety. Be sure to make and go to all appointments, and call your doctor if you are having problems. It's also a good idea to know your test resultsand keep a list of the medicines you take. How can you care for yourself at home? Sleep or rest when your baby sleeps. Get help with night baker from family or friends, if you can. Do not try to do it all yourself. If you have hemorrhoids or swelling or pain around the opening of your vagina, try using cold and heat. You can put ice or a cold pack on the area for 10 to 20 minutes at a time. Put a thin cloth between the ice and your skin. Also try sitting in a few inches of warm water (sitz bath) 3 times a dayand after bowel movements. Take pain medicines exactly as directed. ? If the doctor gave you a prescription medicine for pain, take it as prescribed. ? If you are not taking a prescription pain medicine, ask your doctor if you can take an eara-wvl-lcbfrvd medicine. Eat more fiber to avoid constipation. Include foods such as whole-grain breads and cereals, raw vegetables, raw and dried fruits, and beans. Drink plenty of fluids, enough so that your urine is light yellow or clear like water. If you have kidney, heart, or liver disease and have to limit fluids, talk with your doctor before you increase the amount of fluids you drink. Do not rinse inside your vagina with fluids (douche). If you have stitches, keep the area clean by pouring or spraying warm water over the area outside your vagina and anus after you use the toilet. Keep a list of questions to ask your doctor or k9 handler. Your questions might be about: ? Changes in your breasts, such as lumps or soreness. ? When to expect your menstrual period to start again. ? What form of control is best for you. ? Weight you have put on during the . ? Exercise options. ? What foods and drinks are best for you, especially if you are . ? Problems you might be having with . ? When you can have sex. Some women may want to talk about lubricants for the vagina. ? Any feelings of sadness or restlessness that you are having. When should you call for help? [id number] anytime you think you may need emergency care. For example, call if: You have thoughts of harming yourself, your baby, or another person. You passed out (lost consciousness). You have chest pain, are short of breath, or cough up blood. You have a seizure. Call your doctor now or seek immediate medical care if: Your vaginal bleeding seems to be getting heavier. You are dizzy or lightheaded, or you feel like you may faint. You have a fever. You have new or more belly pain. You have symptoms of a blood clot in your leg (called a deep vein thrombosis), such as: ? Pain in the calf, back of the knee, thigh, or groin. ? Redness and swelling in your leg or groin. You have signs of preeclampsia, such as: ? Sudden swelling of your face, hands, or feet. ? New vision problems (such as dimness, blurring, or seeing spots). ? A severe headache. Watch closely for changes in your health, and be sure to contact your doctor if: You have new or worse vaginal discharge. You feel sad or depressed. You are having problems with your breasts or . Where can you learn more? Go to [email or web address] and sign in to your [employer] account. Enter Z768 in the Search Health Information box to learn more about : Care Instructions. If you do not have an account, please click on the Sign Up Now link. Current as of: July 24, 2018 Content Version: 12.20056038-9751 [employer]. Care instructions adapted under license by [employer]. If youhave questions about a medical condition or this instruction, always ask your healthcare professional. [employer] disclaims any warranty or liability for your use of this information. documented in this encounter* Instructions* Arabella Hunter RN - 10/09/2020 Follow-up with your OB doctor in 2 weeks or as specified by your physician. Please refer to Caring for Yourself and Your Baby book provided in your room. Please take this bookhome with you to refer to. For moms, you can contact our specialists with any problems or questions you may have. Phone number [phone]. Feel free to leave voice mail and your call will be returned as soon as possible. DIET Eat a well balanced diet focusing on foods high in fiber and protein. Drink 8-10 glasses of fluids daily, especially water. To avoid constipation you may take a mild stool softener as recommended by your doctor or k9 handler. ACTIVITY Gradually increase your activity. Resume exercise regimen only after advise by your doctor or k9 handler. Avoid lifting anything heavier than your baby or a gallon of milk for SIX weeks. Avoid driving 1 week for vaginal delivery and 2 weeks for section, unless otherwise instructed by physician. Rise slowly from a lying to sitting and then a standing position. Climb stairs carefully. Use caution when carrying your baby up and down the stairs. NO SEXUAL Activity for 6 weeks or until advised by your doctor; Nothing in vagina: intercourse, tampons, or douching. Be prepared to discuss family planning at your follow-up OB visit. You may feel tired or have a lack of energy. You may continue your vitamin to replenish nutrients post delivery. Nap when baby naps to catch up on sleep. EMOTIONS You may feel julio, sad, teary, & overwhelmed for the first 2 weeks . Contact your OBprovider if you feel you may be showing signs of depression, or have thoughts of harmingyourself or your infant. If infant will not stop crying, contact another adult for help or place infant in their crib on their back and take a break. NEVER shake your . BLEEDING Vaginal bleeding will decrease in amount over the next few weeks. You will notice that as your activity increases, your flow may increase. This is your body's way oftelling you, you need take things easier and rest more often. Call your OB/ER if you are saturating more than one maxi pad in an hour & resting does help. BREAST CARE Take medications as recommended by your doctor or k9 handler for pain If you develop a warm, red, tender area on your breast or develop a fever contact your revenue cycle consultant. [phone]. For moms: If you become engorged, feeding may be more difficult or painful for 1-2 days. You may find it helpful to hand express some milk so that the can latch on more easily. While , continue to take your vitamins as directed by your doctor or k9 handler. Refer to the booklet in the folder/binder for more information. For any questions or concerns contact a Home [facility]. Leave a message and your call will bereturned. For NON- moms: You may apply ice packs to your breasts over you bra for twenty minutes at a time for comfort. Cabbage leaves may be applied to breasts, replace when wilted. Avoid stimulation to your breasts, when showering allow the water to strike your back not your breasts. Do not express milk or your body will make more. Wear a good fitting bra until your milk dries, such as a sports bra. MADDI CARE Shower daily, perineum with mild soap. Use the maddi-bottle until bleeding stops each time you use the restroom. Cleanse your perineum from front to back. If used, stitches will dissolve in 4-6 weeks. You may use a sitz bath or soak in a clean tub with drain open and water running for comfort. Kegel exercises will help restore bladder control. SWELLING Try to keep your legs elevated when you are sitting. When lying down keep your legs elevated. WHEN TO CALL THE DOCTOR If you have a temp of 100.4or more. If your bleeding has increased and you are saturating a pad in an hour. Your abdomen is tender to touch. You are passing blood clots bigger than the size of a lemon. If you are experiencing extreme weakness or dizziness. If you are having flu-like symptoms such as achy muscles or joints. There is a foul smell or a green color to your vaginal bleeding. If you have pain that cannot be relieved. You have persistent burning with urination or frequency. Call if you have concerns about your well-being. You are unable to sleep, eat, or are having thoughts of harming yourself or your baby. You have a red, warm, tender area in you calf. * Attachments The following attachments cannot be sent through Care Everywhere. * (Hebrew) documented in this encounter History of Present Illness * Gayle Ella - 09/04/2019 11:02 AM EDT CLINICAL PHARMACY NOTE: MEDS TO [facility] Patient?: No Total # of Prescriptions Filled: 2 The following medications were delivered to the patient: DOK IBU Total # of Interventions Completed: 0 Time Spent (min): 0 Additional Documentation: * Vida Miller - 09/04/2019 8:59 AM EDT Social Work Received call from [facility] stone sawyer Mary Kate Schreiber [phone]. Per [facility] baby can discharge home with mom. They did ask if a cord was sent. SW contacted nursery to have them order it. * Loretta Bourne DO - 09/04/2019 4:46 AM EDT POST DAY # 2 Brannon Moore is a 24 y.o. female This patient was seen & examined today. 09/02/19 Her was complicated by: Patient Active Problem List Diagnosis High risk multigravida in third trimester Late care Marijuana user GBS bacteriuria History of gestational diabetes Tdap DECLINED DECLINED Flu vaccine High-risk , third trimester 09/02/19 M Apg 8/9 Wt 8#8 Today she is doing well without any chief complaint. Her lochia is light. She denies chest pain, shortness of breath, headache, lightheadedness and blurred vision. She is bottle feeding and she denies any breast tenderness. She is ambulating well. Her voiding pattern is normal. I reviewed signs andsymptoms of post depression with the patient, she currently denies any of these symptoms. She is tolerating solids. Vital Signs: Vitals: 09/02/19202909/03/19 0336 09/03/19 0826 09/03/192029 BP: 111/65 (!) 95/50 100/69 106/61 Pulse: 62 56 56 82 Resp: 16 16 17 18 Temp: 98 F (36.7 C) 98 F (36.7 C) 98.1 F (36.7 C) 97.5 F (36.4 C) TempSrc: Oral Oral SpO2: Weight: Height: Physical Exam: General: no apparent distress, alert and cooperative Neurologic: alert, oriented, normal speech, no focal findings or movement disorder noted Lungs: No increased work of breathing, good air exchange, clear to auscultation bilaterally, no crackles or wheezing Heart: Normal apical impulse, regular rate and rhythm Abdomen: abdomen soft, non-distended, non-tender Fundus: non-tender, firm, below umbilicus Extremities: no calf tenderness, non edematous Lab: Lab Results Component Value Date HGB 11.9 09/01/2019 Lab Results Component Value Date HCT 35.5 (L) 09/01/2019 Assessment/Plan: 1. Brannon Moore is a PPD # 2 s/p - Doing well, VSS - Male infant in General Care Nursery, circumcision done - Encourage ambulation - labs if patient becomes symptomatic 2. Rh positive/Rubella immune 3. Bottle feeding 4. Hx THC Abuse - UDS was negative on admission - Cessation encouraged - SW consulted and [facility] contacted 5. Continue post care 6. Anticipate discharge home today Counseling Completed: Secondary Smoke risks and Sudden Syndrome were reviewed with recommendations. sleeping, back to sleep and avoidance of co-sleeping recommendations were reviewed. Signs and Symptoms of Post Depression were reviewed. The patient is to call if any occur. Signs and symptoms of Mastitis were reviewed. The patient is to call if any occur for follow up. Discharge instructions including pelvic rest, no driving with pain medicine and office follow-up were reviewed with patient Ob Provider: Alberta Roller Skates Assembler Loretta Bourne DO Wire Mill Operator Resident 09/04/2019, 4:46 AM * Sarah Nelson APRN - SOPHIA - 09/03/2019 11:10 AM EDT [facility] Vaginal Note Hospital Day: 3 SUBJECTIVE: Voices no concerns today. Doing well. Voiding, ambulating, eating without difficulty. Denies any leg pain. Bonding with baby.Resting well. Reports pain/cramping and is 5/10 on the pain scale. She reports it is controlled with oral meds. Reports doing well, sore. Bottle feeding OBJECTIVE: Vitals: BP 100/69 Pulse 56 Temp 98.1 F (36.7 C) Resp 17 Ht 5' 1 (1.549 m) Wt 128 lb (58.1 kg) SpO2 99% ? Unknown BMI 24.19 kg/m Constitutional: Awake, alert, cooperative, no apparent distress. Appears to be bonding well with baby, does not appear overly stressed with handling Pain: controlled Breasts: Soft without tenderness, nipples are intact Abdominal Exam: Soft, non-tender, lax muscle tone Fundus is mid-line, firm @ U/-1. Non-tender with palpation. Bladder non-distended Perineum: Intact and healing. Mild erythema, edema or bruising present Lochia: Small and Rubra Extremities: Negative Ignacia sign. Minimal edema Voiding QS, Labs: Lab Results Component Value Date HGB 11.9 09/01/2019 HCT 35.5 09/01/2019 ASSESSMENT/PLAN: Post vaginal Day 1 Continue PP care Reviewed experience and is happy with Discharge instructions were reviewed regarding perineal care, breast care, activity, rest, diet, hygiene and PP depression. Questions were answered. Discharge planned for 09/04/19 Bottlefeeding without difficulty Breast care reviewed Rh positive /Rubella immune * Loretta Bourne, - 09/03/2019 1:32 AM EDT POST DAY # 1 Brannon Moore is a 24 y.o. female This patient was seen & examined today. 09/02/19 Her was complicated by: Patient Active Problem List Diagnosis High risk multigravida in third trimester Late care Marijuana user GBS bacteriuria History of gestational diabetes Tdap DECLINED DECLINED Flu vaccine High-risk , third trimester 09/02/19 M Apg 8/9 Wt 8#8 Today she is doing well without any chief complaint. Her lochia is light. She denies chest pain, shortness of breath, headache, lightheadedness and blurred vision. She is bottle feeding and she denies any breast tenderness. She is ambulating well. Her voiding pattern is normal. I reviewed signs andsymptoms of post depression with the patient, she currently denies any of these symptoms. She is tolerating solids. Vital Signs: Vitals: 09/02/19 1046 09/02/19 1100 09/02/19 1600 09/02/19 2030 BP: 124/76 108/66 111/64 111/65 Pulse: 83 62 61 62 Resp: 16 16 16 16 Temp: 98.7 F (37.1 C) 99.2 F (37.3 C) 98.6 F (37 C) 98 F (36.7 C) TempSrc: Oral Oral SpO2: Weight: Height: Physical Exam: General: no apparent distress, alert and cooperative Neurologic: alert, oriented, normal speech, no focal findings or movement disorder noted Lungs: No increased work of breathing, good air exchange Heart: Normal apical impulse, regular rate and rhythm Abdomen: abdomen soft, non-distended, non-tender Fundus: non-tender, firm, below umbilicus Extremities: no calf tenderness, non edematous Lab: Lab Results Component Value Date HGB 11.9 09/01/2019 Lab Results Component Value Date HCT 35.5 (L) 09/01/2019 Assessment/Plan: 1. Brannon Moore is a PPD # 1 s/p - Doing well, VSS - Male in General Care Nursery, circumcision desired - Encourage ambulation - labs if patient becomes symptomatic 2. Rh positive/Rubella immune 3. Bottle feeding 4. Hx THC Abuse - UDS was negative on admission - Cessation encouraged - SW consulted 5. Continue post care Counseling Completed: Secondary Smoke risks and Sudden Infant Syndrome were reviewed with recommendations. Infant sleeping, back to sleep and avoidance of co-sleeping recommendations were reviewed. Signs and Symptoms of Post Depression were reviewed. The patient is to call if any occur. Signs and symptoms of Mastitis were reviewed. The patient is to call if any occur for follow up. Discharge instructions including pelvic rest, no driving with pain medicine and office follow-up were reviewed with patient Ob Provider: [facility] Roller Skates Assembler Loretta Bourne, DO Wire Mill Operator Resident 09/03/2019, 1:32 AM * Loretta Bourne DO - 09/02/2019 6:43 AM EDT Labor Progress Note Brannon Moore is a 24 y.o. female at 40w3d The patient was seen and examined. Her pain is well controlled. She reports movement is present, complains of contractions, complains of loss of fluid, denies vaginal bleeding. States she feelsmore rectal pressure. Vital Signs: Vitals: 09/02/19 0430 09/02/19 0500 09/02/19 0600 09/02/19 0630 BP: 94/65 113/68 (!) 105/44 (!) 101/52 Pulse: 87 83 77 74 Resp: 18 18 18 18 Temp: 99.3 F (37.4 C) TempSrc: Oral SpO2: Weight: Height: FHT: 140, moderate variability, accelerations present, decelerations variable that spontaneously return to baseline Contractions: regular, every 1-2 minutes Cervical Exam: 7 cm dilated, 90 effaced, 0 station Pitocin: @ 2 mu/min Membranes: Ruptured clear fluid Scalp Electrode in place: absent Intrauterine Pressure Catheter in Place: absent Interventions: none Assessment/Plan: Brannon Moore is a 24 y.o. female at 40w3d IUP - GBS positive/Rh+RI - Pen G for GBS prophylaxis Elective Induction of Labor - VSS - cEFM and TOCO - Epidural in place - Patient had a pit break due to cat II FHT, pitocin is back on at 2 U - Pit per protocol - AROM (clr) @ 0245 - Will continue to watch closely Dr Henry updated and in agreement with plan Loretta Bourne DO Wire Mill Operator Resident 09/02/2019, 6:43 AM * Loretta Bourne DO - 09/02/2019 4:19 AM EDT Labor Progress Note Brannon Moore is a 24 y.o. female at 40w3d The patient was seen and examined. Her pain is well controlled w/ epidural. She reports movement is present, complains of contractions, complains of loss of fluid, denies vaginal bleeding. Vital Signs: Vitals: 09/02/19 0241 09/02/19 0255 09/02/19 0300 09/02/19 0330 BP: (!) 109/58 97/72 106/67 Pulse: 95 84 77 Resp: 18 18 18 Temp: 98.3 F (36.8 C) TempSrc: Oral SpO2: 100% 100% Weight: Height: FHT: 135, moderate variability, accelerations present, variable deceleration noted that spontaneously returned to baseline Contractions: regular, every 9 minutes Cervical Exam: deferred Pitocin: @ 1 mu/min Membranes: Ruptured light meconium stained Scalp Electrode in place: absent Intrauterine Pressure Catheter in Place: absent Interventions: pitocin re started Assessment/Plan: Brannon Moore is a 24 y.o. female at 40w3d IUP - GBS positive/Rh+RI - Pen G for GBS prophylaxis Elective Induction of Labor - VSS - cEFM and TOCO - Epidural in place - Patient had a pit break due to cat II FHT - Pit per protocol re started - AROM performed via MMW - Will continue to watch closely [place] Roller Skates Assembler present on floor Loretta Bourne DO Wire Mill Operator Resident 09/02/2019, 4:19 AM * Lexie Cowan, MYA - RAFIQM - 09/02/2019 3:03 AM EDT [facility] Epidural Labor Note Subjective: Patient is comfortable with epidural. POC was discussed with Dr. Henry and decision to adm epidural and AROM. Brannon requested epidural before AROM. Objective: VS: height is 5' 1 (1.549 m) and weight is 128 lb (58.1 kg). Her oral temperature is 98.6 F (37 C). Her blood pressure is 97/72 and her pulse is 84. Her respiration is 18. FHT: Baseline: 135 Variability: moderate Decels: Variable: mild, has periods of variables and a few lates that resolve with position change. Accels present Contraction pattern q3 mins, mod Pitocin was turned off at 0005 due to decels. Cx: 3-4 cm 80 soft -1 Assessment: Normal labor progress FHR Category 2 Plan: Continue close observation Anticipate vaginal * Lexie Cowan APRN - CNM - 09/01/2019 11:50 PM EDT [facility] Labor Note for Low Intervention Subjective: Brannon is feeling contractions but remains comfortable. POC delayed due to hospital IT system being down. Objective: VS: height is 5' 1 (1.549 m) and weight is 128 lb (58.1 kg). Her oral temperature is 98.5 F (36.9 C). Her blood pressure is 115/74 and her pulse is 96. Her respiration is 20. FHT: Baseline: 135 Variability: moderate Decels: Absent accels present Contractions: q3-4 mins Cx: deferred Assessment: GBS positive Coping well with labor FHR Category 1 Plan: Antibiotic prophylaxis x 4 hours now. Continued support Anticipate vaginal * Loretta Bourne, - 09/01/2019 6:48 PM EDT OBGyn [facility] Resident Involvement Note Date: 09/01/2019 Time: 6:53 PM Patient Name: Brannon Moore Patient : [id number] Room/Bed: 06/0706-01 Admission Date/Time: 09/01/2019 6:47 PM HPI: Brannon Moore is a 24 y.o. at 40w2d who presents for eIOL. The patient reports movement is present, complains of contractions, denies loss of fluid, denies vaginal bleeding. States she is hungry. Patient denies any headache, visual changes, difficulty breathing, RUQ pain, N/V,F/C, and pain/swelling in lower extremities. Denies any dysuria or vaginal discharge. Patients is complicated by THC abuse, hx of gestational diabetes and late to care DATING: LMP: No LMP recorded. Patient is . Estimated Date of Delivery: 08/30/19 Based on: early ultrasound, at 9 3/7 weeks GA RISK FACTORS: Patient Active Problem List Diagnosis High risk multigravida in third trimester Late care Marijuana user GBS bacteriuria History of gestational diabetes Tdap DECLINED DECLINED Flu vaccine Steroids Given In This : no REVIEW OF SYSTEMS: Constitutional: negative fever, negative chills, negative weight changes HEENT: negative visual disturbances, negative headaches, negative dizziness, negative hearing loss Breast: Negative breast abnormalities, negative breast lumps, negative nipple discharge Respiratory: negative dyspnea, negative cough, negative SOB Cardiovascular: negative chest pain, negative palpitations, negative arrhythmia, negative syncope Gastrointestinal: negative abdominal pain, negative RUQ pain, negative N/V, negative diarrhea, negative constipation, negative bowel changes, negative heartburn Genitourinary: negative dysuria, negative hematuria, negative urinary incontinence, negative vaginal discharge Dermatological: negative rash, negative pruritis, negative mole changes Hematologic: negative bruising Immunologic/Lymphatic: negative recent illness, negative recent sick contact Musculoskeletal: negative back pain, negative myalgias, negative arthralgias Neurological: negative dizziness, negative migraines, negative seizures, negative weakness Behavior/Psych: negative depression, negative anxiety, negative SI, negative HI OBSTETRICAL HISTORY: OB History Para Term AB Living 3 1 1 0 1 1 SAB TAB Ectopic Molar Multiple Live Births 1 0 0 0 0 0 # Outcome Date GA Lbr Dinorah/2nd Weight Sex Delivery Anes PTL Lv 3 Current 2 SAB 11/23/18 6w0d 1 Term 01/28/16 40w0d 7 lb 6 oz (3.345 kg) M Vag-Spont EPI N PAST MEDICAL HISTORY: has no past medical history on file. PAST SURGICAL HISTORY: has no past surgical history on file. ALLERGIES: has No Known Allergies. MEDICATIONS: Prior to Admission medications Medication Sig Start Date End Date Taking? Authorizing Provider MV-Min-Fe Fum-FA-DHA ( 1 PO) Take by mouth Historical Provider, FAMILY HISTORY: family history is not on file. SOCIAL HISTORY: reports that she has never smoked. She has never used smokeless tobacco. She reports that she drankalcohol. She reports that she does not use drugs. VITALS: Vitals: 09/01/19 1918 BP: 114/71 Pulse: 91 Resp: 18 Temp: 98.5 F (36.9 C) TempSrc: Oral Weight: 128 lb (58.1 kg) Height: 5' 1 (1.549 m) PHYSICAL EXAM: Heart Monitor: Baseline Heart Rate 130, moderate variability, present accelerations, absent decelerations [place]: contractions, irregular General appearance: no apparent distress, alert and cooperative Neurologic: normal speech, no focal findings or movement disorder noted Lungs: No increased work of breathing, good air exchange Heart: regular rate and rhythm Abdomen: soft, gravid, non-tender, no right upper quadrant tenderness, uterus non-tender, no signs of abruption and no signs of chorioamnionitis Extremities: no calf tenderness, non edematous Pelvic Exam: not indicated, completed previously by [email or web address] handler ASSESSMENT & PLAN: Brannon Moore is a 24 y.o. female at 40w2d IUP - GBS positive / Rh positive / R immune - Pen G for GBS prophylaxis - Anatomy US: posterior placenta, male, normal cord insertion, 3VC Elective Induction of Labor - Admit to labor and delivery under the service of [facility] - VSS - cEFM and TOCO - CBC, T&S, T.Pal ordered - UDS ordered. R/B/A discussed with patient and patient agreeable - IVF: LR@125L/hr - Plan of Induction: Pitocin per protocol - Continue expectant management Hx GDMA - 1 hr gtt 128 THC Abuse - UDS pending - SW consulted for hx of THC abuse Late to Care - Did not establish care until 22 wks Patient Active Problem List Diagnosis Date Noted Tdap DECLINED 08/25/2019 Priority: Low DECLINED Flu vaccine 08/25/2019 Priority: Low History of gestational diabetes 05/29/2019 No early glucola d/t late to care 1 hour glucola: 128 GBS bacteriuria 05/02/2019 + GBS 04/30/19 and 07/08/19 ([place] sent) YOANDY 08/25/19: Negative High risk multigravida in third trimester 04/30/2019 CF/SMA/Fragile X: Negative 1 hr: 128, hgb 12.8 Chart sent for review W/S 05/30/19 -- Will finalize chart review after anatomy scan 06/17. Chart reviewed. Late care 04/30/2019 Due to insurance issues. Initiated care at 22 weeks. Marijuana user 04/30/2019 +TORO 06/24/19 Repeat 08/25/19: negative Plan discussed with Deidre Cowan CNM, who is agreeable. Risks, benefits, alternatives and possible complications have been discussed in detail with the patient. Admission, and post admission procedures and expectations were discussed in detail. All questions were answered. Attending's Name: Dr. Henry (In-house attending) Loretta Bourne DO Wire Mill Operator Resident 09/01/2019, 6:53 PM documented in this encounter* Abena Gann RN - 10/09/2020 10:39 PM EST Mom and baby discharged home with infant carried out in car seat * Dimitrios Cochran MD - 10/09/2020 5:30 AM EST POST DAY # 1 Brannon Moore is a 25 y.o. female This patient was seen & examined today. Her was complicated by: Patient Active Problem List Diagnosis Late care History of marijuana use Tdap DECLINED DECLINED Flu vaccine 09/02/19 M Apg 8/9 Wt 8#8 Smoking HRP (high risk ), third trimester 10/08/20 M Apg 8/9 Wt 7#4 Today she is doing well without any chief complaint. Her lochia is light. She denies chest pain, shortness of breath, headache, lightheadedness, blurred vision, peripheral edema and palpitations. Sheis not breast feeding and she denies any breast tenderness. She is ambulating well. Her voiding pattern is normal. I reviewed signs and symptoms of post depression with the patient, she currently denies any of these symptoms. She is tolerating solids. Patient complaining of stigh or her right lower eyelid. Encouraged to use warm compresses. Vital Signs: Vitals: 10/08/20 2301 10/08/20 2314 10/08/20 2350 10/09/20 0400 BP: (!) 114/58 115/60 118/72 116/83 Pulse: 63 66 83 80 Resp: 16 16 16 16 Temp: 98.4 F (36.9 C) 98.1 F (36.7 C) TempSrc: Oral Oral SpO2: Weight: Height: Physical Exam: General: no apparent distress, alert and cooperative Neurologic: alert, oriented, normal speech, no focal findings or movement disorder noted Lungs: No increased work of breathing, good air exchange, clear to auscultation bilaterally, no crackles or wheezing Heart: regular rate and rhythm Abdomen: abdomen soft, non-distended, non-tender Fundus: non-tender, normal size, firm, below umbilicus Extremities: no calf tenderness, non edematous Lab: Lab Results Component Value Date HGB 9.8 (L) 10/08/2020 Lab Results Component Value Date HCT 31.4 (L) 10/08/2020 Assessment/Plan: 1. Brannon Moore is a PPD # 1 s/p for eIOL - Doing well, VSS - male infant in General Care Nursery, circumcision desired - Encourage ambulation - Labs if Sx 2. Rh positive/Rubella immune 3. Bottle feeding 4. Anemia (9.8) - Labs if Sx - Asymptomatic currently - QBL 155ml 5. Short Interval /Late PNC - SW consult PP 6. THC use/Tobacco use - Cessation encouraged 7. Continue PP care Counseling Completed: Secondary Smoke risks and Sudden Infant Syndrome were reviewed with recommendations. sleeping, back to sleep and avoidance of co-sleeping recommendations were reviewed. Signs and Symptoms of Post Depression were reviewed. The patient is to call if any occur. Signs and symptoms of Mastitis were reviewed. The patient is to call if any occur for follow up. Discharge instructions including pelvic rest, no driving with pain medicine and office follow-up were reviewed with patient Attending Physician: Dulce Vaca DO Wire Mill Operator Resident 10/09/2020, 5:30 AM Attending Physician Statement I have discussed the care of Brannon Moore, including pertinent history and exam findings, with the resident. I have reviewed the hernandez elements of all parts of the encounter with the resident. Pt doing well PPD#1 s/p of male infant. Circumcision done. Pt would like to go home today after 24 hrs. Pt given precautions for discharge. Pt to follow up in office in 2-3 weeks. I agree with the assessment, plan and orders as documented by the resident. (GE Modifier) Dimitrios Cochran MD * Uyen Cardona DO - 10/08/2020 8:02 PM EST Labor Progress Note Brannon Moore is a 25 y.o. female at 39w1d The patient was seen and examined. Her pain is well controlled with epidural. She reports movement is present, complains of contractions, complains of loss of fluid, denies vaginal bleeding. Vital Signs: Vitals: 10/08/20 1831 10/08/20 1901 10/08/20 1930 10/08/20 1931 BP: 104/67 115/68 114/73 Pulse: 68 72 64 Resp: 16 16 20 Temp: TempSrc: SpO2: 100% Weight: Height: FHT: 120, moderate variability, accelerations present, decelerations early Contractions: regular, every 2-3 minutes Cervical Exam: anterior lip, 100, 0 Pitocin: @ 4 mu/min Membranes: Ruptured clear fluid Scalp Electrode in place: absent Intrauterine Pressure Catheter in Place: present Interventions: none Assessment/Plan: Brannon Moore is a 25 y.o. female at 39w1d admitted for eIOL - GBS negative, No indication for GBS prophylaxis - VSS - S/p Cytotec 25 PV x1 - Morphine/Phenergan x1, Morphine 2mg IV - SVE: Anterior lip, 100, 0 - Continue pitocin per protocol - Epidural in place and functioning - AROM clear @ 1800 - IUPC placed - Continue to monitor closely Discussed with senior resident. Attending updated and in agreement with plan Dulce Qiu DO Wire Mill Operator Resident 10/08/2020, 8:02 PM * Uyen Cardona DO - 10/08/2020 6:07 PM EST Labor Progress Note Brannon Moore is a 25 y.o. female at 39w1d The patient was seen and examined. Her pain is well controlled with epidural. She reports movement is present, complains of contractions, complains of loss of fluid, denies vaginal bleeding. AROM performed. Mom and baby tolerated well. Vital Signs: Vitals: 10/08/20 1726 10/08/20 1727 10/08/20 1729 10/08/20 1801 BP: 97/67 (!) 106/56 (!) 120/58 (!) 91/56 Pulse: 80 64 69 73 Resp: 16 16 16 16 Temp: 98.2 F (36.8 C) TempSrc: Oral Weight: Height: FHT: 120, moderate variability, accelerations present, decelerations absent Contractions: regular, every 2-3 minutes Cervical Exam: 4 cm dilated, 70 effaced, -1 station Pitocin: @ 4 mu/min Membranes: Ruptured clear fluid Scalp Electrode in place: absent Intrauterine Pressure Catheter in Place: present Interventions: AROM Assessment/Plan: Brannon Moore is a 25 y.o. female at 39w1d admitted for eIOL - GBS negative, No indication for GBS prophylaxis - VSS - S/p Cytotec 25 PV x1 - Morphine/Phenergan x1, Morphine 2mg IV - SVE: 4,70, -1 - Continue pitocin per protocol - Epidural in place and functioning - AROM clear @ 1800 - IUPC placed - Continue to monitor closely Discussed with senior resident. Attending updated and in agreement with plan. Dulce Qiu DO Wire Mill Operator Resident 10/08/2020, 6:07 PM * Uyen Cardona DO - 10/08/2020 4:45 PM EST Labor Progress Note Brannon Moore is a 25 y.o. female at 39w1d The patient was seen and examined. Her pain is not well controlled and patient is requesting epidural. She reports movement is present, complains of contractions, denies loss of fluid, denies vaginal bleeding. Patient's SVE is unchanged. Plan to get patient epidural and and AROM after. Vital Signs: Vitals: 10/08/20 1023 10/08/20 1154 10/08/20 1513 10/08/20 1602 BP: 124/64 113/73 110/73 103/64 Pulse: 81 83 70 61 Resp: 16 16 16 16 Temp: 98.4 F (36.9 C) 98.2 F (36.8 C) TempSrc: Oral Oral Weight: Height: FHT: 110, moderate variability, accelerations absent, decelerations absent Contractions: regular, every 2-3 minutes Cervical Exam: 3 cm dilated, 50 effaced, -1 station Pitocin: @ 3 mu/min Membranes: Intact Scalp Electrode in place: absent Intrauterine Pressure Catheter in Place: absent Interventions: Patient to receive epidural. Assessment/Plan: Brannon Moore is a 25 y.o. female at 39w1d admitted for eIOL - GBS negative, No indication for GBS prophylaxis - VSS - S/p Cytotec 25 PV x1 - Morphine/Phenergan x1, Morphine 2mg IV - SVE: 3,50, -1 - Continue pitocin per protocol - Patient desires epidural - AROM s/p epidural - Continue to monitor closely Discussed with senior resident. Attending updated and in agreement with plan. Dulce Qiu DO Wire Mill Operator Resident 10/08/2020, 4:45 PM * Uyen Cardona DO - 10/08/2020 1:06 PM EST Labor Progress Note Branonn Moore is a 25 y.o. female at 39w1d The patient was seen and examined. Her pain is not well controlled and patient received 2mg IV morphine. She reports movement is present, complains of contractions, denies loss of fluid, deniesvaginal bleeding. Patient desires epidural. Vital Signs: Vitals: 10/08/20 0828 10/08/20 0829 10/08/20 1023 10/08/20 1154 BP: 100/68 124/64 113/73 Pulse: 84 81 83 Resp: 16 16 16 Temp: 98.3 F (36.8 C) TempSrc: Oral Weight: 129 lb 9.6 oz (58.8 kg) Height: 5' 2 (1.575 m) FHT: 125, moderate variability, accelerations present, decelerations absent Contractions: irregular, difficult to trace Cervical Exam: 3 cm dilated, 50 effaced, -1 station Pitocin: @ 0 mu/min Membranes: Intact Scalp Electrode in place: absent Intrauterine Pressure Catheter in Place: absent Interventions: none Assessment/Plan: Brannon Moore is a 25 y.o. female at 39w1d admitted for eIOL - GBS negative, No indication for GBS prophylaxis - VSS - S/p Cytotec 25 PV x1 - Morphine/Phenergan x1, Morphine 2mg IV - SVE: 3,50, -1 - Plan to start pitocin @ 1430 - Patient desires epidural - Continue to monitor closely Attending updated and in agreement with plan. Dulce Qiu DO Wire Mill Operator Resident 10/08/2020, 1:06 PM * Christel Snow DO - 10/08/2020 10:33 AM EST Labor Progress Note Brannon Moore is a 25 y.o. female at 39w1d The patient was seen and examined. Her pain is well controlled. Patient reports more pressure. She reports movement is present, denies contractions, denies loss of fluid, denies vaginal bleeding. Cytotec 25 PV x1 placed without difficulty Vital Signs: Vitals: 10/08/20 0828 10/08/20 0829 10/08/20 1023 BP: 100/68 124/64 Pulse: 84 81 Resp: 16 16 Temp: 98.3 F (36.8 C) TempSrc: Oral Weight: 129 lb 9.6 oz (58.8 kg) Height: 5' 2 (1.575 m) FHT: 125, moderate variability, accelerations present, absent decelerations Contractions: rare contractions [place] Units: not able to be calculated Cervical Exam: not done Pitocin: @ 0 mu/min Membranes: Intact Scalp Electrode in place: absent Intrauterine Pressure Catheter in Place: absent Interventions: Cytotec 25 PV x1 placed without difficulty Assessment/Plan: Brannon Moore is a 25 y.o. female at 39w1d here for eIOL - GBS negative, No indication for GBS prophylaxis - Cat I FHT, TOCO rare contractions - MVUs: not able to be calculated - SVE not done - VSS - Cytotec 25 PV x1, next due @ 1423 Anemia (9.8) - Pt denies any s/s anemia Tobacco use - Encouraged cessation Christel Snow DO Wire Mill Operator Resident 10/08/2020, 10:33 AM documented in this encounter Additional Source Comments INFORMATION SOURCE (unrecogn ized section and content) DATE CREATED AUTHOR 05/14/2018 [facility] DATE CREATED AUTHOR AUTHOR'S ORGANIZ ATION 10/09/2020 [facility] DATE CREATED AUTHOR AUTHOR'S ORGANIZ ATION 10/12/2020 [facility] DATE CREATED AUTHOR AUTHOR'S ORGANIZ ATION 11/20/2022 [facility] DATE CREATED AUTHOR AUTHOR'S ORGANIZ ATION 10/18/2023 [facility] EPIC Reason for Visit (unrecogniz ed section and content) Reason Comments Scheduled Induction Status Reason Specialty Diagnoses / Procedures Referre d By Contact Referred To Contact Diagnoses High-risk , third trimester Breana Henry DO [address] [place] [address] [facility] Status Reason Specialty Diagnoses / Procedures Referre d By Contact Referred To Contact Open Radiology Diagnoses Missed menses Procedures US OB 14 PLUS WEEKS SINGLE OR FIRST GESTATION US OB LESS THAN 14 WEEKS SINGLE OR FIRST GESTATION Dimitrios Cochran MD [address] [place] [address] FOR RECORDS PERTAINING TO PATIENTS WHO ARE OR HAVE BEEN ENROLLED IN A CHEMICAL DEPENDENCY/SUBSTANCEABUSE PROGRAM, SOME INFORMATION MAY BE OMITTED. This clinical summary was aggregated from multiple sources. Caution should be exercised in using it in the provision of clinical care. This summary normalizes information from multiple sources, and as a consequence, information in this document may materially change the coding, format and clinical context of patient data. In addition, data may be omitted in some cases. CLINICAL DECISIONS SHOULD BE BASED ON THE PRIMARY CLINICAL RECORDS. [facility]. provides no warranty or guarantee of the accuracy or completeness of information in this document.
[2023-11-09 06:22] LABS: Basophils Percent Auto 0.2 % (0.2-2.0); Hematocrit 42.3 % (36.0-48.0); Hemoglobin 13.9 g/dL (12.0-16.0); Immature Granulocytes Abs Auto 0.04 10^3/uL (0.00-0.03); Immature Granulocytes Pct Auto 0.3 % (0.0-0.5); Lymphocytes Absolute Auto 1.8 10^3/uL (1.2-3.8); Lymphocytes Percent Auto 14.5 % (20.5-60.0); Mean Corpuscular HGB Conc 32.9 g/dL (29.9-35.2); Mean Corpuscular Hemoglobin 30.2 pg (26.7-34.0); Mean Platelet Volume 10.1 fL (9.5-13.5); Monocytes Absolute Auto 0.4 10^3/uL (0.3-0.8); Monocytes Percent Auto 3.1 % (1.7-12.0); Neutrophils Percent Auto 81.9 % (43.0-75.0); Platelet Count 233 10^3/uL (150-450); Red Cell Distribution Width 12.2 % (11.0-15.0); White Blood Count 12.2 10^3/uL (4.0-11.0)
[2023-11-09 06:41] LABS: HCG Quantitative <1 mIU/mL
[2023-11-09] MEDS: LACTATED RINGER'S SOLUTION 1,000 ML 50 ML IV (06:52)
--- NOTE | 2023-11-09 08:38 | P.ON_ITS ---
Brief Operative Note Date of procedure: 11/09/23 Pre-op diagnosis: desies permanent sterilization, multiparity Post-op diagnosis: same as pre-op Procedure: Brief Operative Note Date of procedure: Pre-op diagnosis: Post-op diagnosis: Procedure: NAME OF PROCEDURE: robotic assisted bilateral laparoscopic salpingectomy PROCEDURE: The patient was taken back to the Operating Room where she was given general anesthesia without difficulty. She was then prepped and draped in the normal sterile fashion after being placed in a dorsal lithotomy position. A wet sponge stick was placed into the patient's vagina. Attention was then turned to the patient's abdomen, where a scalpel was used to make a small infraumbilical incision. The S retractors were then used to dissect the underlying layers until the fascia could be seen. The fascia was then grasped with Tomas clamps and tented up. A knife was then used to make a small incision to the fascia. The muscle was identified, at that time two sutures of #0 Vicryl on a GI needle was then used and placed through the fascia. the peritoneum was then identified and entered bluntly. The 10-4 Liliya was then placed into the patient's abdomen. This was confirmed with direct visualization of the bowel, using the laparoscope. The patient's abdomen was then insufflated using approximately 4 liters of CO2 gas. Survey of the patient's abdomen demonstrated ovaries were normal in appearance as well as both tubes and uterus. A second and third rt and lt lateral robotic ports which were 8 mm in size, was then placed after the skin incision was made under direct visualization . the robotic arms were engaged. The patient's tube on the patient's right side was identified and tented up using a grasper, the ligasure apparatus was then used to come across the mesosalpingx from the fimbriated end to the insertion site at the uterus, the tube was then amputated and removed in its entirety. This was done on the contralateral side. The tubes were the removed from the patients abdomen. Excellent hemostasis was noted. The lateral ports were then moved under direct visualization with excellent hemostasis. All instruments were removed from the patient's abdomen. The fascia was closed using the #0 Vicryl on GI needle. The skin was closed using 4-0 Vicryl subcuticularly. All instruments were removed from the patient's vagina as well. The patient was taken out of the dorsal lithotomy position and placed in the supine position and taken to recovery in stable condition. Sponge, lap and needle counts were correct x2. Anesthesia: WEST Surgeon: Gerson Ling Director Global Market Research: Jing Garcia Estimated blood loss (mL): 5 Pathology: other (tubes) Condition: stable Disposition: PACU
[2023-11-09] MEDS: LACTATED RINGER'S SOLUTION 1,000 ML 150 ML IV (09:32)
[2023-11-09] MEDS: HYDROCODONE/ACET 5-325 MG TABLET 1 TAB PO (09:45)
--- NOTE | 2023-11-10 12:10 | PC.NURSE ---
Returned pt.'s phone call to Dr Ling after speaking to Dr Ling in reference to pt.'s concerns about pain and the pain medication not controlling the pain. Pt. was advised to utilize a heating pad on the affected areas of pain, to utilize Gas-X as stated on the package directions, pt should sleep or lie down no less then a 45 degree angle to assist the gas to dissipate evenly throughout the body. In addition, pt was educated on the pain medication and effectiveness on pain from surgery vs pain from gas, and the after effects of the gas utilized in the procedure. Pt reports comprehension and denies any further questions at this time. Pt informed to call back for any further questions
== END 2023-11-09 10:25 | disposition home or self-care (01) ==
PROVIDERS: PCP Internal Medicine; Visit Provider Obstetrics & Gynecology
PROC: (CPT 840; principal; 2023-11-09 07:30)
DX: Z30.2 Encounter for sterilization (principal); F17.290 Nicotine dependence, other tobacco product, uncomplicated; F41.9 Anxiety disorder, unspecified
CPT/HCPCS: 58661; 36415; 84702; 85025; 88302; J1170; J2704